=== PATIENT | male | born 1965 | race Caucasian/White ===

== ENCOUNTER 2020-11-29 10:00 | Outpatient (RCR) | payer OTHER, SELFPAY | END 2020-12-12 10:37 | disposition home or self-care (01) | LOC: HO.PTCHIC 10:00 | PROVIDERS: PCP Family Medicine; Visit Provider Family Medicine | DX: M54.41 Lumbago with sciatica, right side (principal) | CPT/HCPCS: 97110; 97162; 97530 ==

== ENCOUNTER 2023-08-20 08:14 | Outpatient (REF) | payer OTHER, SELFPAY | END 2023-08-20 08:15 | disposition home or self-care (01) | LOC: HO.HOSX 08:14 | PROVIDERS: Visit Provider Orthopaedic Surgery | DX: Z13.89 Encounter for screening for other disorder (principal) ==

== ENCOUNTER 2023-09-10 13:03 | Outpatient (AMB) | payer OTHER, SELFPAY ==
--- NOTE | 2023-09-10 13:09 | A.OFFVIS_ITS ---
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 The patient describes his right knee pain as sharp and severe in nature, 08/25. His pain has gotten worse over the last 10 years in spite of continued non operative treatments. He has done physical therapy which aggravated his pain. He has also tried Tylenol and anti-inflammatory medicines which gave him minimal relief. He has had injections in the past which gave him no relief. The patient has difficulty walking even short distances because of his pain. At this point is right knee pain is interfering with his activities of daily living and his ability to sleep well through the night. Allergies No Known Allergies Allergy (Verified 09/10/23 13:27) Medication List - Last Reconciled 09/10/23 by Kerrie Granados RN baclofen 10 mg PO TID oxycodone-acetaminophen 5-325 mg (Percocet) 1 tab PO TID PRN PFSH Medical History (Updated 09/10/23 @ 13:45 by Grayson Parker MD) Pulmonary embolism Physical Exam Const Other: Well-nourished well-developed very friendly male awake alert and oriented x3 in no acute distress Extrem Other: Bilateral lower extremity examination shows good capillary refill, no skin lesions noted, normal sensation light touch Bilateral knee examination shows minimal effusions, palpable crepitus with range of motion, pain with range of motion, range of motion from -5 degrees to 115 degrees, no instability Results Reviewed Results Reviewed: X-rays of the patient's bilateral knee show severe degenerative joint disease with grade 4 [id number] arthritis, subchondral sclerosis, osteophyte formation, no acute bony abnormalities Assessment & Plan Assessment & Plan (1) Arthritis of right knee: Code(s): M17.11 - Unilateral primary osteoarthritis, right knee Plan Mr. Gannon presents with progressively worsening bilateral knee pains, right greater than left, due to severe degenerative joint disease. I had a lengthy discussion with the patient regarding the treatment options. At this point he h as failed continued non operative treatments. The risks and benefits of right total knee replacement surgery were discussed at length with the patient. The patient wishes to proceed with surgery. He will contact my office to pick a surgery date. I will see him back 1 week prior to his surgery to answer any final questions that he might have. Feel free to call me at any time should questions regarding his orthopedic management arise. Thank you very much for the me to see this very friendly gentleman. I spent 22 minutes in reviewing the patient's records and imaging studies, seeing the patient and documenting in the medical record. Orders: Orders XR knee LT 3V Today M25.561 - Pain in right knee XR knee RT 3V Today M25.561 - Pain in right knee Coding Level of Care Code New Pt Level 2 (86238) Diagnoses Arthritis of right knee M17.11
== END 2023-09-10 13:47 | disposition home or self-care (01) ==
PROVIDERS: PCP Family Medicine; Visit Provider Orthopaedic Surgery
DX: M17.11 Unilateral primary osteoarthritis, right knee (principal)
CPT/HCPCS: 99202

== ENCOUNTER 2023-09-10 15:02 | Outpatient (REF) | payer OTHER, SELFPAY ==
--- NOTE | ~2023-09-10 | XR_ITS ---
EXAMINATION: XR KNEE, RIGHT XR KNEE, LEFT CLINICAL INFORMATION: Bilateral knee pain. COMPARISON: None available. TECHNIQUE: AP, lateral and sunrise views of bilateral knees. FINDINGS: RIGHT KNEE: Moderate joint effusion. The bones are diffusely demineralized. Advanced tricompartmental degenerative changes with joint space loss most notable in the lateral compartment, and osteophytes. Faint chondrocalcinosis in the lateral compartment. LEFT KNEE: The bones are diffusely demineralized. Moderate joint effusion. Advanced tricompartmental degenerative changes with tricompartmental joint space loss and marginal osteophytes. Faint chondrocalcinosis in the lateral compartment. XR/XR knee RT 3V IMPRESSION: Advanced degenerative changes in the bilateral knees. Additional imaging with CT scan or MRI should be considered for better visualization as these modalities are much more sensitive for detection of fracture or other underlying pathology.
--- NOTE | ~2023-09-10 | XR_ITS ---
EXAMINATION: XR KNEE, RIGHT XR KNEE, LEFT CLINICAL INFORMATION: Bilateral knee pain. COMPARISON: None available. TECHNIQUE: AP, lateral and sunrise views of bilateral knees. FINDINGS: RIGHT KNEE: Moderate joint effusion. The bones are diffusely demineralized. Advanced tricompartmental degenerative changes with joint space loss most notable in the lateral compartment, and osteophytes. Faint chondrocalcinosis in the lateral compartment. LEFT KNEE: The bones are diffusely demineralized. Moderate joint effusion. Advanced tricompartmental degenerative changes with tricompartmental joint space loss and marginal osteophytes. Faint chondrocalcinosis in the lateral compartment. XR/XR knee LT 3V IMPRESSION: Advanced degenerative changes in the bilateral knees. Additional imaging with CT scan or MRI should be considered for better visualization as these modalities are much more sensitive for detection of fracture or other underlying pathology.
== END 2023-09-10 15:03 | disposition home or self-care (01) ==
LOC: HO.HOSX 15:02
PROVIDERS: Visit Provider Orthopaedic Surgery
DX: M17.11 Unilateral primary osteoarthritis, right knee (principal); M25.562 Pain in left knee; Z79.899 Other long term (current) drug therapy; Z79.891 Long term (current) use of opiate analgesic
CPT/HCPCS: 73562; 99202

== ENCOUNTER → 2023-09-21 11:34 | Outpatient (BNV) | payer OTHER, SELFPAY | PROVIDERS: PCP Student in an Organized Health Care Education/Training Program; Visit Provider Internal Medicine | DX: I26.99 Other pulmonary embolism without acute cor pulmonale (principal) | CPT/HCPCS: 99204 ==

== ENCOUNTER → 2023-10-28 13:25 | Outpatient (REF) | payer OTHER, SELFPAY ==
--- NOTE | 2023-10-28 13:28 | CA_ITS ---
Transthoracic Echocardiogram Patient (Last, First, Middle): Erick Gannon, Gender: Male Date of : 1965 Age: 58 Procedure Date: 10/28/2023 Procedure Type: Transthoracic Echocardiogram Location: OP Height: 175.26 cm Weight: 104.33 kg BSA: 2.19 m2 Heart Rate: bpm BP: 150 / 72 mmHg Completions Manager: TO Referring MD: Estela Barber MD Employee Relation Manager: Karthik Hinkle MD Symptoms: [id number] Study Quality: Fair ECG Rhythm: Sinus Conclusions: - 1. Normal LV ejection fraction 60 65% with grade 1 diastolic dysfunction with possible regional wall motion abnormality, consider ischemic evaluation 2. Normal cardiac valvular Dopplers with mild fibrocalcific aortic valve changes noted 3. Normal RV systolic pressure 4. Upper limits of normal ascending aortic size at 3.6 cm 5. No gross pericardial effusion Findings Procedure Information The patient declines contrast. Left Ventricle Normal left ventricular size, thickness, and systolic function. The visually estimated ejection fraction is between 60-65%. Spectral Doppler is indicative of an impaired relaxation filling pattern. E/E prime ratio is <8, consistent with normal filling pressures. Evidence suggests grade I (mild) diastolic dysfunction. Wall Motion Rest Echo Findings The basal inferior and basal inferolateral segments are hypokinetic. All other scored wall segments showed normal motion. Right Ventricle Normal right ventricular cavity size and systolic function. Atria The left atrium is likely dilated. Interatrial shunt cannot be excluded. The right atrium is normal in size. Aortic Valve There is mild calcification of the aortic valve. There is no aortic valve stenosis. There is no aortic valve regurgitation. Mitral Valve Normal mitral valve structure and function. There is trace mitral valve regurgitation. There is no mitral valve stenosis. Pulmonic Valve The pulmonic valve was not well visualized. Tricuspid Valve Normal tricuspid valve structure. There is trace tricuspid valve regurgitation. The right ventricular systolic pressure is normal. The right ventricular systolic pressure is 25 mmHg. Normal right atrial pressure. There is no evidence of pulmonary hypertension. Great Vessels The pulmonary artery was not well visualized. Venous The inferior vena cava is normal in size and collapses greater than 50% with inspiration. Pericardium/Pleural There is no evidence of pericardial effusion. Prior Study Comparison No prior study available for comparison. Measurements 2D Linear Measurements IVSd: 1.12 0.6-0.9/0.6-1.0 cm LVIDd: 4.99 3.9-5.3/4.2-5.9 cm LVIDd Index: 2.28 2.4-3.2/2.2-3.1 cm/m2 LVIDs: 2.87 2.0-3.6 cm LVPWd: 0.85 0.7-1.1 cm LA Diam: 3.90 2.7-3.8/3.0-4.0 cm LAIDs Index: 1.78 1.5-2.3 cm/m2 LV Mass: 236.13 67-162/88-224 g LV Mass Index: 107.82 43-95/49-115 g/m2 LVOT Diam: 2.30 3.0+(-)1.3 cm Mitral Valve MV Pk E: 0.79 MV PK A: 0.84 MV Decel Time: 244.00 E/A: 0.90 E'Lateral: 12.00 E'Medial: 6.53 E/E' Med: 12.10 E/E' Lat: 6.60 PHT: 72.00 MVA PHT: 3.06 Decel Hendricks: 3.24 Aortic Valve AoV Pk Sumanth: 1.77 AoV Mn Sumanth: 1.17 AoV VTI: 0.36 AoV Pk Grad: 13.00 Aov Mn Grad: 6.00 THERESA Cont.VTI: 2.62 LVOT LVOT Pk Sumanth: 0.99 LVOT Mn Sumanth: 0.62 LVOT VTI: 0.23 LVOT Pk Grad: 4.00 LVOT Mn Grad: 2.00 LVOT Diam: 2.30 LVOT Area: 4.15 Diastolic Function MV Pk E: 0.79 MV Pk A: 0.84 E/A: 0.90 E'Medial: 6.53 E/E' Med: 12.10 E' Laterial: 12.00 E/E' Lat: 6.60 Right Ventricle TAPSE (mm): 27.50 TVS' Sumanth: 15.70 Tricuspid Valve TR Pk Sumanth: 2.34 TR Pk Grad: 22.00 RA Press: 3.00 RVSP: 25.00 Great Vessels Aorta Sinus of Valsalva: 3.67 2.0-3.[address] Ridge: 2.75 1.7-3.4 cm Ao Asc: 3.60 2.1-3.4 cm Updated in Other Vendor System with Status of Final Karthik Hinkle MD electronically signed on 10/28/2023 3:38:46 PM with status of Final
== END ==
LOC: HO.CARD 13:25
PROVIDERS: PCP Student in an Organized Health Care Education/Training Program; Visit Provider Student in an Organized Health Care Education/Training Program
DX: R06.00 Dyspnea, unspecified (principal)
CPT/HCPCS: 93306

== ENCOUNTER → 2023-10-28 13:28 | Outpatient (BNV) | payer OTHER, SELFPAY | PROVIDERS: PCP Student in an Organized Health Care Education/Training Program; Visit Provider Internal Medicine Cardiovascular Disease | DX: I35.8 Other nonrheumatic aortic valve disorders (principal); I51.9 Heart disease, unspecified | CPT/HCPCS: 93306 ==

== ENCOUNTER 2024-05-11 19:02 | Emergency (ER) | payer OTHER, SELFPAY ==
[2024-05-11 19:29] VITALS: BP 108/65; PULSE 100; RESP 19; TEMP 36.4; O2SAT 100; BMI 29.5
--- NOTE | 2024-05-11 19:33 | ED_ITS ---
HPI - General Adult General Chief complaint: Extremity Problem Stated complaint: cant move legs Time Seen by Provider: 05/11/24 21:33 Source: patient Mode of arrival: ambulatory Limitations: no limitations History of Present Illness ED Provider: ashley WILHELM narrative: Patient's history of osteoarthritis of the knee for several months has seen orthopedics and received cortisone shots in the past also does have history of gout comes here for increased pain in the left knee for last few days unable to ambulate. No recent trauma Related Data Home Medications ?Medication ?Instructions ?Recorded ?Confirmed albuterol sulfate 90 mcg/actuation 2 puff inhalation DAILY PRN 09/10/23 05/13/24 aerosol inhaler (ProAir HFA) Wheezing allopurinol 100 mg tablet 100 mg PO DAILY 09/10/23 05/13/24 apixaban 5 mg tablet (Eliquis) 5 mg PO BID 09/10/23 05/13/24 atorvastatin 40 mg tablet 40 mg PO DAILY 09/10/23 05/13/24 baclofen 10 mg tablet 10 mg PO TID 09/10/23 05/13/24 oxycodone-acetaminophen 5 mg-325 1 tab PO TID PRN Pain (Scale Score 09/10/23 05/13/24 mg tablet (Percocet) 4-6) umeclidinium 62.5 mcg/actuation 1 inh inhalation DAILY 09/10/23 05/13/24 blister powder for inhalation (Incruse Ellipta) Previous Rx's ?Medication ?Instructions ?Recorded prednisone 20 mg tablet 40 mg (2 x 20 mg) PO DAILY #10 tabs 05/11/24 oxycodone-acetaminophen 5 mg-325 1 tab PO TID PRN moderate pain 05/13/24 mg tablet (scale score 5-6) #9 tabs Allergies Allergy/AdvReac Type Severity Reaction Status Date / Time No Known Allergies Allergy Verified 05/11/24 19:32 Review of Systems 2 Review of Systems: Yes all other systems are reviewed and are negative PMFSH Past Medical History Medical History Osteoarthritis Pulmonary embolism STALLINGS (dyspnea on exertion) HLD (hyperlipidemia) Pterygium of eye Depression Gout Obesity Knee pain Surgical History H/O: knee surgery Social History Social History Household Members: Other Housing: Apartment Unable to assess alcohol history related to: Unknown Patient Tobacco Use Status: Current everyday Tobacco user Tobacco use type: Cigarette service: No Current occupational status: disabled Physical Exam ED Vital Signs: Vital Signs - 24 hr 05/11/24 19:29 05/11/24 21:13 05/11/24 22:12 Temperature 97.5 F 97.3 F 98.0 F Pulse Rate 100 115 H 97 Respiratory Rate 19 20 18 Blood Pressure 108/65 126/76 115/69 Pulse Oximetry 100 96 97 Oxygen Delivery Method Room Air Room Air Room Air 05/11/24 23:16 Temperature 98.0 F Pulse Rate 97 Respiratory Rate 18 Blood Pressure 115/69 Pulse Oximetry 97 Oxygen Delivery Method Room Air BMI result Body Mass Index 29.5 Appearance: Alert. Oriented X3. No acute distress. ENT: Pharynx normal. Oral Mucosa moist Neck: Normal inspection. Neck supple. CVS: Normal heart rate and rhythm. Pulses normal. Respiratory: No respiratory distress. Equal air entry bilateral, Abdomen: Soft and nontender. Bowel sounds are present, Skin: Skin warm and dry. Normal skin color. Normal skin turgor. Extremities: Left knee with effusion and diffuse tenderness Neuro: Oriented X 3. No motor deficit. No sensory deficit.No cerebellar signs , cranial nerves II-XII intact Course Course Course Narrative: This is a Rapid Medical Examination (RME) performed by Luci Walton PA-C in triage. Full HPI, ROS, assessment and treatment plan per primary provider in the Main ED. 58 yo male hx of here for eval of bilateral LE pain and weakness x1.5 months. denies injury/ trauma. He has not been medically evaluated for this over the last month and a half. called PCP however has been unable to get an appointment until June 09, 2024. Denies nausea, vomiting, abdominal pain, difficulty breathing, saddle anesthesia, bowel or bladder incontinence or retention, tingling down the lower extremities. Patient not forthcoming with information. patient presents in wheelchair. Unable to assess ambulation. decreased strength to LEs. sensation intact to light touch. unable to assess patellar DTRs d/t patient positioning in triage. Plan: labs, ua, xr ordered Reevaluation(s) Reevaluation #1: this is a duplicate note. Please see Dr. Robertson's complete note for patient's visit on 05/11/24. Medications Administered Discontinued Medications Generic Name Dose Route Start Last Admin Trade Name Saurav PRN Reason Stop Dose Admin Dexamethasone 10 mg 05/11/24 23:10 05/11/24 23:14 Dexamethasone 2 Mg Tablet PO 05/11/24 23:11 10 mg ONCE ONE Administration Lidocaine HCl 5 ml 05/11/24 21:59 05/11/24 23:15 Lidocaine Hcl 2 % Mpf 5 Ml Vial INFILTRATI 05/11/24 22:00 Not Given ONCE ONE Methylprednisolone Acetate 80 mg 05/11/24 21:59 05/11/24 23:15 Methylprednisolone Acetate 80 Mg Vial INTRAARTIC 05/11/24 22:00 Not Given ONCE ONE Oxycodone HCl 10 mg 05/11/24 21:54 05/11/24 22:02 Oxycodone Hcl Immed Release 5 Mg Tablet PO 05/11/24 21:55 10 mg ONCE ONE Administration Medical Decision Making Medical Decision Making [facility] Narrative: Patient has significant osteoarthritis/gout of knee patient refused knee aspiration or cortisone injection initially agreed but when I approach drain refused to any injection will discharge patient home advised to follow with Orthopedics Lab Data MDM Lab Attestation statement: I reviewed the patient's lab results. 05/11/24 19:58 05/11/24 19:58 Labs: Lab Results 05/11/24 Range/Units 19:58 WBC 11.3 H (4.8-10.8) X10*3/uL RBC 4.32 L (4.60-5.80) X10*6/uL Hgb 11.2 L D (14.0-18.0) g/dl Hct 34.8 L D (42.0-52.0) % MCV 80.6 (80.0-98.0) fL MCH 25.9 L (27.0-33.0) pg MCHC 32.2 (31.0-36.0) g/dl RDW 14.6 (11.0-16.0) % Plt Count 452 H D (160-400) X10*3/uL MPV 9.6 (9.4-12.4) fL Immature Gran % (Auto) 0.4 (0.0-0.4) % Neut % (Auto) 65.4 (45-73) % Lymph % (Auto) 20.2 (20-40) % [place] % (Auto) 7.5 (2-11) % Eos % (Auto) 6.1 H (0-4) % Baso % (Auto) 0.4 (0-2) % Lymph # (Auto) 2.3 (1.2-4.9) X10*3/uL [place] # (Auto) 0.9 (0.1-1.2) X10*3/uL Eos # (Auto) 0.7 H (0.0-0.4) X10*3/uL Baso # (Auto) 0.0 (0.0-0.2) X10*3/uL Abs Immat Gran (auto) 0.05 H (0.00-0.03) X10*3/uL Absolute Neuts (auto) 7.4 (2.0-8.3) x10*3/uL Absolute Nucleated RBC 0.000 (0.0-0.012) X10*3/uL Nucleated RBC % (auto) 0.0 (0.0-0.2) /100WBC Sodium 140 (135-145) mmol/L Potassium 4.9 (3.3-5.1) mmol/L Chloride 102 (96-108) mmol/L Carbon Dioxide 25 (22-29) mmol/L Anion Gap 18 (12-20) BUN 9 (9-16) mg/dL Creatinine 0.93 (0.5-1.4) mg/dL Estim Creat Clear Calc 98.7 Estimated GFR > 60 Random Glucose 96 (60-115) mg/dL Calcium 9.6 (8.4-10.2) mg/dL Magnesium 2.1 (1.6-2.6) mg/dL Total Bilirubin 0.4 (0.0-1.0) mg/dL AST 14 (5-37) U/L ALT 13 (0-40) U/L Alkaline Phosphatase 127 H (39-117) U/L Total Protein 7.5 (6.5-8.0) g/dL Albumin 3.7 (3.5-5.0) g/dL Lipase 13 (8-78) U/L Vitamin B12 421 (200-900) pg/mL Discharge Plan Discharge Clinical Impression: Arthritis of left knee Patient Disposition: Home, Self-Care Instructions: Osteoarthritis (ED) Additional Instructions: Follow with Orthopedics Titi wrap for support Take prednisone as prescribed Prescriptions: New prednisone 20 mg tablet 40 mg PO DAILY Qty: 10 0RF No Action oxycodone-acetaminophen 5-325 mg tablet 1 tab PO TID PRN (Reason: moderate pain (scale score 5-6)) Qty: 9 0RF Rx Instructions: Partial Fill upon patient request. oxycodone-acetaminophen [Percocet] 5-325 mg tablet 1 tab PO TID PRN (Reason: Pain (Scale Score 4-6)) baclofen 10 mg tablet 10 mg PO TID Eliquis 5 mg tablet 5 mg PO BID Incruse Ellipta 62.5 mcg/actuation blister with device 1 inh inhalation DAILY albuterol sulfate [ProAir HFA] 90 mcg/actuation HFA aerosol inhaler 2 puff inhalation DAILY PRN (Reason: Wheezing) allopurinol 100 mg tablet 100 mg PO DAILY atorvastatin 40 mg tablet 40 mg PO DAILY Referrals: Giacomo Rios MD [Physician] - 2 weeks Interventions: ED Discharge Assessment Last Done: 05/11/24 23:16 Discharge Date/Time: 05/11/24 23:46 Print Language: Japanese
[2024-05-11 20:03] LABS: MANUAL DIFF FLAG NO
[2024-05-11 20:08] LABS: Basophils Percent Auto 0.4 % (0-2); Eosinophils Absolute Auto 0.7 X10*3/uL (0.0-0.4); Eosinophils Percent Auto 6.1 % (0-4); Hematocrit 34.8 % (42.0-52.0); Hemoglobin 11.2 g/dl (14.0-18.0); Imm Gran Abs Auto 0.05 X10*3/uL (0.00-0.03); Imm Gran Pct Auto 0.4 % (0.0-0.4); Lymphocytes Absolute Auto 2.3 X10*3/uL (1.2-4.9); Lymphocytes Percent Auto 20.2 % (20-40); Mean Corpuscular HGB Conc 32.2 g/dl (31.0-36.0); Mean Corpuscular Hemoglobin 25.9 pg (27.0-33.0); Mean Corpuscular Volume 80.6 fL (80.0-98.0); Mean Platelet Volume 9.6 fL (9.4-12.4); Monocytes Absolute Auto 0.9 X10*3/uL (0.1-1.2); Monocytes Percent Auto 7.5 % (2-11); Neutrophils Absolute Auto 7.4 x10*3/uL (2.0-8.3); Neutrophils Percent Auto 65.4 % (45-73); Platelet Count 452 X10*3/uL (160-400); Red Blood Count 4.32 X10*6/uL (4.60-5.80); Red Cell Distribution Width 14.6 % (11.0-16.0); White Blood Count 11.3 X10*3/uL (4.8-10.8)
[2024-05-11 20:28] LABS: Alanine Aminotransferase 13 U/L (0-40); Albumin Level 3.7 g/dL (3.5-5.0); Alkaline Phosphatase 127 U/L (39-117); Anion Gap 18 (12-20); Aspartate Amino Transferase 14 U/L (5-37); Bilirubin Total 0.4 mg/dL (0.0-1.0); Blood Urea Nitrogen 9 mg/dL (9-16); Calcium 9.6 mg/dL (8.4-10.2); Carbon Dioxide 25 mmol/L (22-29); Chloride 102 mmol/L (96-108); Creatinine Clr Calc Pharmacy 98.7; Estimated Glomerular Filt Rate > 60; Glucose Random 96 mg/dL (60-115); Lipase 13 U/L (8-78); Magnesium 2.1 mg/dL (1.6-2.6); Potassium 4.9 mmol/L (3.3-5.1); Sodium 140 mmol/L (135-145); Total Protein 7.5 g/dL (6.5-8.0)
[2024-05-11 20:56] LABS: Vitamin B12 421 pg/mL (200-900)
[2024-05-11 21:13] VITALS: BP 126/76; PULSE 115; RESP 20; TEMP 36.3; O2SAT 96
--- NOTE | 2024-05-11 21:15 | MHC.EDTECH ---
pt changed over, vitals taken and pt positioned to back with pillows and warm blanket given for comfort
[2024-05-11] MEDS: oxyCODONE HCl Immed Release 5 MG TABLET 10 MG PO (22:02)
[2024-05-11 22:12] VITALS: BP 115/69; PULSE 97; RESP 18; TEMP 36.7; O2SAT 97
--- NOTE | 2024-05-11 23:09 | PC.NURSE ---
Pt refusing all care after receiving oxycodone pain med administration. pt does not want fluid in knee to be drained, does not want cortisone shot in knee, says eh wants to leave and will call son for ride. pt A&Ox4, able to make own decisions, MD Robertson at bedside and aware - discharging patient with svetlana bandage wrap.
[2024-05-11] MEDS: dexAMETHasone 2 MG TABLET 10 MG PO (23:14)
--- NOTE | 2024-05-11 23:14 | ED.EXTPRO ---
HPI - Extremity Problem General Chief complaint: Extremity Problem Stated complaint: cant move legs Time Seen by Provider: 05/11/24 21:33 Source: patient Mode of arrival: ambulatory Limitations: no limitations History of Present Illness ED Provider: ashley WILHELM Narrative: Patient's history of gout and osteoarthritis of both knees comes here for increased pain in the left knee for some time was seen by orthopedics in the past but had a poor follow-up on Eliquis for PE bilaterally, no recent trauma or fall comes with swelling of the left knee increases ambulation no fever no chills Related Data Home Medications ?Medication ?Instructions ?Recorded ?Confirmed albuterol sulfate 90 mcg/actuation 2 puff inhalation DAILY PRN 09/10/23 09/21/23 aerosol inhaler (ProAir HFA) Wheezing allopurinol 100 mg tablet 100 mg PO DAILY 09/10/23 09/21/23 apixaban 5 mg tablet (Eliquis) 5 mg PO BID 09/10/23 09/21/23 atorvastatin 40 mg tablet 40 mg PO DAILY 09/10/23 09/21/23 baclofen 10 mg tablet 10 mg PO TID 09/10/23 09/21/23 oxycodone-acetaminophen 5 mg-325 1 tab PO TID PRN Pain (Scale Score 09/10/23 09/21/23 mg tablet (Percocet) 4-6) umeclidinium 62.5 mcg/actuation 1 inh inhalation DAILY 09/10/23 09/21/23 blister powder for inhalation (Incruse Ellipta) Previous Rx's ?Medication ?Instructions ?Recorded prednisone 20 mg tablet 40 mg (2 x 20 mg) PO DAILY #10 tabs 05/11/24 Allergies Allergy/AdvReac Type Severity Reaction Status Date / Time No Known Allergies Allergy Verified 05/11/24 19:32 Review of Systems Review of Systems: Yes all other systems are reviewed and are negative PMFSH Past Medical History Medical History (Updated 05/11/24 @ 23:11 by Nicholas Robertson MD) Osteoarthritis Pulmonary embolism STALLINGS (dyspnea on exertion) HLD (hyperlipidemia) Pterygium of eye Depression Gout Obesity Knee pain Surgical History (Updated 09/21/23 @ 11:53 by Moriah Cardenas MD) H/O: knee surgery Social History Social History (Updated 09/21/23 @ 11:46 by Renetta Lucero) Household Members: Other Housing: Apartment Unable to assess alcohol history related to: Unknown Patient Tobacco Use Status: Current everyday Tobacco user Tobacco use type: Cigarette Use of substances other than those prescribed or required for medical reasons: Unknown Advance Directives: No Advance Directives Information Provided: No Do you have a plan to hurt others: No Plan service: No Current occupational status: disabled Physical Exam Vital Signs: Vital Signs: Last Vital Signs Temp 98.0 F 05/11/24 22:12 Pulse 97 05/11/24 22:12 Resp 18 05/11/24 22:12 BP 115/69 05/11/24 22:12 Pulse Ox 97 05/11/24 22:12 O2 Del Method Room Air 05/11/24 22:12 BMI result Body Mass Index 29.5 Extrem: Knee images: 1. Moderate knee effusion diffuse tenderness Medications Administered Discontinued Medications Generic Name Dose Route Start Last Admin Trade Name Freq PRN Reason Stop Dose Admin Oxycodone HCl 10 mg 05/11/24 21:54 05/11/24 22:02 Oxycodone Hcl Immed Release 5 Mg Tablet PO 05/11/24 21:55 10 mg ONCE ONE Administration Medical Decision Making Medical Decision Making [facility] Narrative: Patient's history of gout comes here for increased pain in left knee does have history of arthritis also in the past initially patient agreed for steroid injection at the time of giving the injection patient refused does not want any shots will be applied will give prednisone and discharge patient home advised to follow up as outpatient Lab Data [facility] Lab Attestation statement: I reviewed the patient's lab results. 05/11/24 19:58 05/11/24 19:58 Labs: Lab Results 05/11/24 Range/Units 19:58 WBC 11.3 H (4.8-10.8) X10*3/uL RBC 4.32 L (4.60-5.80) X10*6/uL Hgb 11.2 L D (14.0-18.0) g/dl Hct 34.8 L D (42.0-52.0) % MCV 80.6 (80.0-98.0) fL MCH 25.9 L (27.0-33.0) pg MCHC 32.2 (31.0-36.0) g/dl RDW 14.6 (11.0-16.0) % Plt Count 452 H D (160-400) X10*3/uL MPV 9.6 (9.4-12.4) fL Immature Gran % (Auto) 0.4 (0.0-0.4) % Neut % (Auto) 65.4 (45-73) % Lymph % (Auto) 20.2 (20-40) % [place] % (Auto) 7.5 (2-11) % Eos % (Auto) 6.1 H (0-4) % Baso % (Auto) 0.4 (0-2) % Lymph # (Auto) 2.3 (1.2-4.9) X10*3/uL [place] # (Auto) 0.9 (0.1-1.2) X10*3/uL Eos # (Auto) 0.7 H (0.0-0.4) X10*3/uL Baso # (Auto) 0.0 (0.0-0.2) X10*3/uL Abs Immat Gran (auto) 0.05 H (0.00-0.03) X10*3/uL Absolute Neuts (auto) 7.4 (2.0-8.3) x10*3/uL Absolute Nucleated RBC 0.000 (0.0-0.012) X10*3/uL Nucleated RBC % (auto) 0.0 (0.0-0.2) /100WBC Sodium 140 (135-145) mmol/L Potassium 4.9 (3.3-5.1) mmol/L Chloride 102 (96-108) mmol/L Carbon Dioxide 25 (22-29) mmol/L Anion Gap 18 (12-20) BUN 9 (9-16) mg/dL Creatinine 0.93 (0.5-1.4) mg/dL Estim Creat Clear Calc 98.7 Estimated GFR > 60 Random Glucose 96 (60-115) mg/dL Calcium 9.6 (8.4-10.2) mg/dL Magnesium 2.1 (1.6-2.6) mg/dL Total Bilirubin 0.4 (0.0-1.0) mg/dL AST 14 (5-37) U/L ALT 13 (0-40) U/L Alkaline Phosphatase 127 H (39-117) U/L Total Protein 7.5 (6.5-8.0) g/dL Albumin 3.7 (3.5-5.0) g/dL Lipase 13 (8-78) U/L Vitamin B12 421 (200-900) pg/mL Discharge Plan Discharge Clinical Impression: Arthritis of left knee Patient Disposition: Home, Self-Care Instructions: Osteoarthritis (ED) Additional Instructions: Follow with Orthopedics Titi wrap for support Take prednisone as prescribed Prescriptions: New prednisone 20 mg tablet 40 mg PO DAILY Qty: 10 0RF No Action oxycodone-acetaminophen [Percocet] 5-325 mg tablet 1 tab PO TID PRN (Reason: Pain (Scale Score 4-6)) baclofen 10 mg tablet 10 mg PO TID Eliquis 5 mg tablet 5 mg PO BID Incruse Ellipta 62.5 mcg/actuation blister with device 1 inh inhalation DAILY albuterol sulfate [ProAir HFA] 90 mcg/actuation HFA aerosol inhaler 2 puff inhalation DAILY PRN (Reason: Wheezing) allopurinol 100 mg tablet 100 mg PO DAILY atorvastatin 40 mg tablet 40 mg PO DAILY Referrals: Giacomo Rios MD [Physician] - 2 weeks Print Language: [place]
[2024-05-11 23:16] VITALS: BP 115/69; PULSE 97; RESP 18; TEMP 36.7; O2SAT 97
== END 2024-05-11 23:46 | disposition home or self-care (01) ==
PROVIDERS: Physician Assistant Medical; Emergency Provider Internal Medicine; PCP Student in an Organized Health Care Education/Training Program
DX: M17.12 Unilateral primary osteoarthritis, left knee (principal); M25.562 Pain in left knee; M25.561 Pain in right knee; E78.5 Hyperlipidemia, unspecified; M10.9 Gout, unspecified
CPT/HCPCS: 36415; 80053; 82607; 83690; 83735; 85025; 99283; 99284; J8540

== ENCOUNTER 2024-05-12 02:20 | Emergency (ER) | payer OTHER, SELFPAY ==
--- NOTE | 2024-05-12 08:03 | ED_ITS ---
HPI - Extremity Problem General Chief complaint: Extremity Injury, Lower Stated complaint: L KNEE PAIN Time Seen by Provider: 05/12/24 07:38 Source: patient and old records reviewed Mode of arrival: ambulatory Limitations: no limitations History of Present Illness ED Provider: CHAPARRO WILHELM Narrative: 58 yo male with PMH of arthritis, obesity, HLD, PE on eliquis, obesity, gout here with c/o 3 weeks of leg pain and cannot care for himself he was just seen here and started on prednisone yesterday he also takes percocet BID. He notes he cannot get up and care for himself and family somehow got him into a car. He is very upset he is here but agrees to see PT/CM MD Complaint: joint swelling and joint pain Onset (ago): week(s) (3) Pain Consistency: constant Location: left and knee Quality: crushing Radiation: none Relieving factors: nothing Exacerbating factors: range of motion, weight bearing, walking and palpation Associated symptoms: denies other symptoms Context: history of gout Related Data Home Medications ?Medication ?Instructions ?Recorded ?Confirmed albuterol sulfate 90 mcg/actuation 2 puff inhalation DAILY PRN 09/10/23 09/21/23 aerosol inhaler (ProAir HFA) Wheezing allopurinol 100 mg tablet 100 mg PO DAILY 09/10/23 09/21/23 apixaban 5 mg tablet (Eliquis) 5 mg PO BID 09/10/23 09/21/23 atorvastatin 40 mg tablet 40 mg PO DAILY 09/10/23 09/21/23 baclofen 10 mg tablet 10 mg PO TID 09/10/23 09/21/23 oxycodone-acetaminophen 5 mg-325 1 tab PO TID PRN Pain (Scale Score 09/10/23 09/21/23 mg tablet (Percocet) 4-6) umeclidinium 62.5 mcg/actuation 1 inh inhalation DAILY 09/10/23 09/21/23 blister powder for inhalation (Incruse Ellipta) Previous Rx's ?Medication ?Instructions ?Recorded prednisone 20 mg tablet 40 mg (2 x 20 mg) PO DAILY #10 tabs 05/11/24 Allergies Allergy/AdvReac Type Severity Reaction Status Date / Time No Known Allergies Allergy Verified 05/11/24 19:32 Review of Systems 2 Review of Systems: Constitutional : No Fever, No Chills ENT/Mouth : No Ear Pain, No Hoarseness, No sore throat Eyes: No Eye Pain, No Swelling, No Redness, No Foreign Body Cardiovascular : No Chest Pain, No SOB Respiratory : No Cough, No Dyspnea Gastrointestinal : No Nausea, No Vomiting, No Diarrhea, No abdominal Pain Genitourinary : No Dysuria, No Hematuria Musculoskeletal : positive joint pain, No Myalgias, pos Joint Swelling Skin : No Skin lacerations, No rash Neuro : No Weakness, No Numbness, No Loss of Consciousness, No Dizziness, No Headache Psych : No Anxiety/Panic, No Depression Heme/Lymph: no easy bruising, no Lymphadenopathy Endocrine : No Polyuria, No Polydipsia All other systems reviewed and are negative PMFSH Past Medical History Attestation statement: The following information was validated with the patient. Source: old records reviewed Medical History Osteoarthritis Pulmonary embolism STALLINGS (dyspnea on exertion) HLD (hyperlipidemia) Pterygium of eye Depression Gout Obesity Knee pain Surgical History H/O: knee surgery Social History Social History Household Members: Other Housing: Apartment Unable to assess alcohol history related to: Unknown Patient Tobacco Use Status: Current everyday Tobacco user Tobacco use type: Cigarette Advance Directives: No Advance Directives Information Provided: No service: No Current occupational status: disabled Physical Exam 2 Vital Signs: Vital Signs: Last Vital Signs Temp 98.4 F 05/12/24 08:15 Pulse 97 05/12/24 08:15 Resp 18 05/12/24 08:15 BP 112/57 L 05/12/24 08:15 Pulse Ox 100 05/12/24 08:15 O2 Del Method Room Air 05/12/24 08:15 Appearance: Alert. Oriented X3. No acute distress. Frail unwell appearing unsteady on his feet Eyes: Pupils equal, round and reactive to light. ENT: Pharynx normal. Neck: Normal inspection. Neck supple. CVS: Normal heart rate and rhythm. Pulses normal. Respiratory: No respiratory distress. Breath sounds normal. Abdomen: Soft and nontender. Skin: Skin warm and dry. pale skin color. Normal skin turgor. Extremities: No lower extremity edema. L small joint effusion no redness, warmth will not allow ROM exam testing Neuro: Oriented X 3. No motor deficit. No sensory deficit. Medications Administered Discontinued Medications Generic Name Dose Route Start Last Admin Trade Name Saurav PRN Reason Stop Dose Admin Morphine Sulfate 15 mg 05/12/24 08:02 05/12/24 08:32 Morphine Sulfate Immed Release 15 Mg Tablet PO 05/12/24 08:03 15 mg ONCE ONE Administration Medical Decision Making Medical Decision Making MDM Narrative: 58 yo male with PMH of arthritis, obesity, HLD, PE on eliquis, obesity, gout here with c/o inability to care for himself, knee pain x 3 weeks just started on steroids yesterday he has small joint effusion but it is not something I would drain at this time and he has no signs of septic joint. If work up negative will refer to PT/CM he is unable to care for himself. Differential Diagnosis Differential Diagnoses: The differential diagnosis associated with the presentation includes FTT, weakness, arthritis, gout Admission/Observation Consideration of admission/observation: Escalation of care including admission/observation considered physician observation started at 915am pending PT/CM Consult Healthcare Provider Management of the patient was discussed with: Shopper Marketing Manager Lab Data [facility] Lab Attestation statement: I reviewed the patient's lab results. 05/12/24 08:43 05/12/24 08:43 Labs: Lab Results 05/12/24 Range/Units 08:43 WBC 7.6 (4.8-10.8) X10*3/uL RBC 4.35 L (4.60-5.80) X10*6/uL Hgb 11.3 L (14.0-18.0) g/dl Hct 34.9 L (42.0-52.0) % MCV 80.2 (80.0-98.0) fL MCH 26.0 L (27.0-33.0) pg MCHC 32.4 (31.0-36.0) g/dl RDW 14.7 (11.0-16.0) % Plt Count 426 H (160-400) X10*3/uL MPV 9.3 L (9.4-12.4) fL Immature Gran % (Auto) 0.7 H (0.0-0.4) % Neut % (Auto) 90.2 H (45-73) % Lymph % (Auto) 7.3 L (20-40) % Davie % (Auto) 1.7 L (2-11) % Eos % (Auto) 0.0 (0-4) % Baso % (Auto) 0.1 (0-2) % Lymph # (Auto) 0.6 L (1.2-4.9) X10*3/uL Davie # (Auto) 0.1 (0.1-1.2) X10*3/uL Eos # (Auto) 0.0 (0.0-0.4) X10*3/uL Baso # (Auto) 0.0 (0.0-0.2) X10*3/uL Abs Immat Gran (auto) 0.05 H (0.00-0.03) X10*3/uL Absolute Neuts (auto) 6.8 (2.0-8.3) x10*3/uL Absolute Nucleated RBC 0.000 (0.0-0.012) X10*3/uL Nucleated RBC % (auto) 0.0 (0.0-0.2) /100WBC Smear Tech's Comments VERIFIED Sodium 141 (135-145) mmol/L Potassium 5.0 (3.3-5.1) mmol/L Chloride 103 (96-108) mmol/L Carbon Dioxide 26 (22-29) mmol/L Anion Gap 17 (12-20) BUN 9 (9-16) mg/dL Creatinine 0.94 (0.5-1.4) mg/dL Estim Creat Clear Calc TNP Estimated GFR > 60 Random Glucose 137 H (60-115) mg/dL Calcium 10.1 (8.4-10.2) mg/dL Magnesium 2.1 (1.6-2.6) mg/dL Total Bilirubin 0.5 (0.0-1.0) mg/dL Direct Bilirubin 0.2 (0.0-0.5) mg/dL AST 12 (5-37) U/L ALT 13 (0-40) U/L Alkaline Phosphatase 129 H (39-117) U/L Total Protein 7.5 (6.5-8.0) g/dL Albumin 3.8 (3.5-5.0) g/dL Independent Interpretation I performed an independent interpretation of an: Plain X-Ray (from yesterday ) Radiology Impression Discussion of test interpretation with radiology: I have reviewed the radiologist's reading. External Record Review External record reviewed: Inpatient record Discharge Plan Discharge Clinical Impression: Left knee pain Qualifiers: Chronicity: acute Qualified Code(s): M25.562 - Pain in left knee Patient Disposition: Still a Patient Prescriptions: No Action prednisone 20 mg tablet 40 mg PO DAILY Qty: 10 0RF oxycodone-acetaminophen [Percocet] 5-325 mg tablet 1 tab PO TID PRN (Reason: Pain (Scale Score 4-6)) baclofen 10 mg tablet 10 mg PO TID Eliquis 5 mg tablet 5 mg PO BID Incruse Ellipta 62.5 mcg/actuation blister with device 1 inh inhalation DAILY albuterol sulfate [ProAir HFA] 90 mcg/actuation HFA aerosol inhaler 2 puff inhalation DAILY PRN (Reason: Wheezing) allopurinol 100 mg tablet 100 mg PO DAILY atorvastatin 40 mg tablet 40 mg PO DAILY Print Language: Turkmen
[2024-05-12 08:15] VITALS: BP 112/57; PULSE 97; RESP 18; TEMP 36.9; O2SAT 100
[2024-05-12] MEDS: Morphine Sulfate Immed Release 15 MG TABLET PO ×2 (08:32→18:21)
[2024-05-12 08:55] LABS: Basophils Percent Auto 0.1 % (0-2); Hematocrit 34.9 % (42.0-52.0); Hemoglobin 11.3 g/dl (14.0-18.0); Imm Gran Abs Auto 0.05 X10*3/uL (0.00-0.03); Imm Gran Pct Auto 0.7 % (0.0-0.4); Lymphocytes Absolute Auto 0.6 X10*3/uL (1.2-4.9); Lymphocytes Percent Auto 7.3 % (20-40); MANUAL DIFF FLAG SCAN; Mean Corpuscular HGB Conc 32.4 g/dl (31.0-36.0); Mean Corpuscular Volume 80.2 fL (80.0-98.0); Mean Platelet Volume 9.3 fL (9.4-12.4); Monocytes Absolute Auto 0.1 X10*3/uL (0.1-1.2); Monocytes Percent Auto 1.7 % (2-11); Neutrophils Absolute Auto 6.8 x10*3/uL (2.0-8.3); Neutrophils Percent Auto 90.2 % (45-73); Platelet Count 426 X10*3/uL (160-400); Red Blood Count 4.35 X10*6/uL (4.60-5.80); Red Cell Distribution Width 14.7 % (11.0-16.0); SCAN SMEAR FLAG 1; White Blood Count 7.6 X10*3/uL (4.8-10.8)
--- NOTE | 2024-05-12 08:58 | PC.NURSE ---
patient unsteady on his feet, two person assist from commode onto bed. patient stating the pain in his left knee has been increasing. encouraged to call for assistance to use the bathroom. medicated per the MAR for pain, labs obtained and sent.
[2024-05-12 09:10] LABS: Alanine Aminotransferase 13 U/L (0-40); Albumin Level 3.8 g/dL (3.5-5.0); Alkaline Phosphatase 129 U/L (39-117); Anion Gap 17 (12-20); Aspartate Amino Transferase 12 U/L (5-37); Bilirubin Direct 0.2 mg/dL (0.0-0.5); Bilirubin Total 0.5 mg/dL (0.0-1.0); Blood Urea Nitrogen 9 mg/dL (9-16); Calcium 10.1 mg/dL (8.4-10.2); Carbon Dioxide 26 mmol/L (22-29); Chloride 103 mmol/L (96-108); Estimated Glomerular Filt Rate > 60; Glucose Random 137 mg/dL (60-115); Magnesium 2.1 mg/dL (1.6-2.6); Sodium 141 mmol/L (135-145); Total Protein 7.5 g/dL (6.5-8.0)
[2024-05-12 09:11] LABS: SLIDE REVIEW VERIFIED
[2024-05-12 09:32] LABS: COVID-19 Test Negative (Negative); IDNOW Serial# 08D9AD1C
[2024-05-12 10:29] VITALS: BP 112/60; PULSE 69; RESP 20; TEMP 36.6; O2SAT 99
[2024-05-12 12:14] VITALS: BP 107/69; PULSE 80; RESP 16; TEMP 36.6; O2SAT 96
--- NOTE | 2024-05-12 12:54 | PC.NURSE ---
RN to RN phone report given to Katy in overflow, patient on his way over.
--- NOTE | 2024-05-12 14:20 | MHC.CM.ED ---
Received case management consult from Dr Valverde. Patient came to the ER due to knee pain and difficulty walking. Physical therapy eval completed. Short term rehab is recommended. Referral broadcasted in [employer]. [facility], [facility], [facility], [facility]. Met with patient in regards to discharge planning. Patient lives with a friend. PCP verified as Jaqueline Cifuentes. HCP completed, signed and witnessed. Facility choices discussed. Patient chooses [facility]. [facility] asked [facility] obtain insurance auth. Continue to monitor for d/c needs.
[2024-05-12 19:21] VITALS: RESP 18
[2024-05-12 19:51] VITALS: BP 110/60; PULSE 61; RESP 17; TEMP 36.5; O2SAT 99
--- NOTE | 2024-05-12 21:36 | PC.NURSE ---
Assumed care of patient at 19:00. Patient continues in ED overflow. Uzbek and Croatian speaking; pt declined offered poultry killer and is able to make his needs known. A&Ox4. Speech clear. Pt is pleasant and cooperative. VSS. Pt only complaint is continued pain in my legs . Patient reports some improvement with prn morphine on reassessment. Ice packs applied with additional improvement reported per patient. +radial and dp pulses. +cms. -edema. MAEE. Pt denies numbness and tingling. Breathing is even and unlabored without distress on RA. Voids cyu in urinal in adequate amounts. Denies n/v. Tolerating po intake. Bed alarm on and safety measures in place.
[2024-05-13] MEDS: Morphine Sulfate Immed Release 15 MG TABLET PO ×2 (00:16→09:58)
[2024-05-13 01:16] VITALS: RESP 16
[2024-05-13 04:48] VITALS: BP 102/54; PULSE 50; RESP 15; TEMP 36.5; O2SAT 99
[2024-05-13] MEDS: predniSONE 20 MG TABLET 40 MG PO (09:55)
[2024-05-13] MEDS: Apixaban 5 MG TABLET PO (09:55)
--- NOTE | 2024-05-13 10:05 | MHC.CM.ED ---
[facility]. ID Booking # [id number]. Provider and Primary RN aware. Facility is requesting a script for oxycodone. Provider aware. Son called and updated on plan of care. Med nec/face sheet and ED worksheet to gunite mixer.
[2024-05-13 10:07] VITALS: BMI 29.5
--- NOTE | 2024-05-13 10:07 | PHA.MEDREC ---
Pharmacy Consult ? Medication Reconciliation Pharmacy has completed the medication reconciliation. Spoke to patient at bedside, confirmed he still takes Atorvastatin, Allopurinol, and Baclofen, just hasn't had them delivered for some time.
== END 2024-05-13 11:37 ==
PROVIDERS: Emergency Provider Emergency Medicine; PCP Registered Nurse
DX: M25.462 Effusion, left knee (principal); M79.605 Pain in left leg; E78.5 Hyperlipidemia, unspecified; R06.09 Other forms of dyspnea; F17.210 Nicotine dependence, cigarettes, uncomplicated; Z86.711 Personal history of pulmonary embolism; Z79.01 Long term (current) use of anticoagulants; Z11.52 Encounter for screening for COVID-19
CPT/HCPCS: 36415; 80048; 80076; 83735; 85025; 87635; 97162; 99284; 99285

== ENCOUNTER 2024-06-20 14:17 | Emergency (ER) | payer OTHER, SELFPAY ==
--- NOTE | ~2024-06-20 | XR_ITS ---
EXAMINATION: XR KNEE, LEFT CLINICAL INFORMATION: Left knee pain COMPARISON: Left knee 09/10/2023 TECHNIQUE: Four views of the left knee. FINDINGS: Again seen are severe tricompartmental degenerative changes with marked narrowing in all compartments most marked laterally and at the patellofemoral compartment. Some mild chondrocalcinosis is seen in the lateral meniscus, better visualized previously. No fractures or dislocations. XR/XR knee LT 4V IMPRESSION: Severe tricompartmental degenerative changes. No acute finding.
[2024-06-20 14:58] VITALS: BP 125/59; BP 134/86; PULSE 102; PULSE 93; RESP 18; TEMP 37; O2SAT 97; BMI 27.7
--- NOTE | 2024-06-20 15:06 | ED_ITS ---
HPI - General Adult General Chief complaint: General Medical Stated complaint: BILAT LEG PAIN, NO AMB Time Seen by Provider: 06/20/24 15:03 Source: patient and EMS Mode of arrival: EMS Limitations: no limitations History of Present Illness HPI narrative: 59-year-old male past medical history significant for arthritis obesity PE on Eliquis obesity and gout patient has had approximately 5 weeks of left knee pain unable to take care of himself he has been on prednisone and Percocet. Patient was at a local skilled nursing in [place] was discharged today after prolonged stay here in the ER patient went to a motel and called EMS for chronic knee pain. Patient has any falls or injuries denies fevers chills cough or shortness of breath. Related Data Home Medications ?Medication ?Instructions ?Recorded ?Confirmed albuterol sulfate 90 mcg/actuation 2 puff inhalation DAILY PRN 09/10/23 05/13/24 aerosol inhaler (ProAir HFA) Wheezing allopurinol 100 mg tablet 100 mg PO DAILY 09/10/23 05/13/24 apixaban 5 mg tablet (Eliquis) 5 mg PO BID 09/10/23 05/13/24 atorvastatin 40 mg tablet 40 mg PO DAILY 09/10/23 05/13/24 baclofen 10 mg tablet 10 mg PO TID 09/10/23 05/13/24 oxycodone-acetaminophen 5 mg-325 1 tab PO TID PRN Pain (Scale Score 09/10/23 05/13/24 mg tablet (Percocet) 4-6) umeclidinium 62.5 mcg/actuation 1 inh inhalation DAILY 09/10/23 05/13/24 blister powder for inhalation (Incruse Ellipta) Previous Rx's ?Medication ?Instructions ?Recorded prednisone 20 mg tablet 40 mg (2 x 20 mg) PO DAILY #10 tabs 05/11/24 oxycodone-acetaminophen 5 mg-325 1 tab PO TID PRN moderate pain 05/13/24 mg tablet (scale score 5-6) #9 tabs Allergies Allergy/AdvReac Type Severity Reaction Status Date / Time No Known Allergies Allergy Verified 06/20/24 15:00 [facility] Past Medical History Medical History Osteoarthritis Pulmonary embolism STALLINGS (dyspnea on exertion) HLD (hyperlipidemia) Pterygium of eye Depression Gout Obesity Knee pain Surgical History H/O: knee surgery Social History Social History Household Members: Other Housing: Apartment Unable to assess alcohol history related to: Unknown Patient Tobacco Use Status: Current everyday Tobacco user Tobacco use type: Cigarette Smoked in Last 30 Days: No Use of substances other than those prescribed or required for medical reasons: No Advance Directives: Yes Advance Directives on File: Yes Advance Directives Date on File: 05/12/24 service: No Current occupational status: disabled Physical Exam ED Vital Signs: Vital Signs - 24 hr 06/20/24 14:58 Temperature 98.6 F Pulse Rate 93 Respiratory Rate 18 Blood Pressure 125/59 L Pulse Oximetry 97 Oxygen Delivery Method Room Air BMI result Body Mass Index 27.7 Medical Decision Making Medical Decision Making MDM Narrative: I will get case management involved again Differential Diagnosis Differential Diagnoses: The differential diagnosis associated with the presentation includes Chronic arthritis of the knee failure to thrive Consult Healthcare Provider Management of the patient was discussed with: Plate Hanger Lab Data [facility] Lab Attestation statement: I reviewed the patient's lab results. 06/20/24 16:14 06/20/24 16:14 Labs: Lab Results 06/20/24 Range/Units 16:14 WBC 14.4 H (4.8-10.8) X10*3/uL RBC 3.99 L (4.60-5.80) X10*6/uL Hgb 10.6 L (14.0-18.0) g/dl Hct 32.1 L (42.0-52.0) % MCV 80.5 (80.0-98.0) fL MCH 26.6 L (27.0-33.0) pg MCHC 33.0 (31.0-36.0) g/dl RDW 18.1 H (11.0-16.0) % Plt Count 295 D (160-400) X10*3/uL MPV 9.9 (9.4-12.4) fL Immature Gran % (Auto) 0.3 (0.0-0.4) % Neut % (Auto) 78.3 H (45-73) % Lymph % (Auto) 8.7 L (20-40) % Woodruff % (Auto) 12.4 H (2-11) % Eos % (Auto) 0.1 (0-4) % Baso % (Auto) 0.2 (0-2) % Lymph # (Auto) 1.3 (1.2-4.9) X10*3/uL Woodruff # (Auto) 1.8 H (0.1-1.2) X10*3/uL Eos # (Auto) 0.0 (0.0-0.4) X10*3/uL Baso # (Auto) 0.0 (0.0-0.2) X10*3/uL Abs Immat Gran (auto) 0.05 H (0.00-0.03) X10*3/uL Absolute Neuts (auto) 11.3 H (2.0-8.3) x10*3/uL Absolute Nucleated RBC 0.000 (0.0-0.012) X10*3/uL Nucleated RBC % (auto) 0.0 (0.0-0.2) /100WBC Sodium 134 L (135-145) mmol/L Potassium 4.0 (3.3-5.1) mmol/L Chloride 99 (96-108) mmol/L Carbon Dioxide 25 (22-29) mmol/L Anion Gap 14 (12-20) BUN 9 (9-16) mg/dL Creatinine 0.83 (0.5-1.4) mg/dL Estim Creat Clear Calc 106.1 Estimated GFR > 60 Random Glucose 98 (60-115) mg/dL Calcium 9.5 (8.4-10.2) mg/dL Independent Interpretation I performed an independent interpretation of an: Plain X-Ray Radiology Impression Discussion of test interpretation with radiology: I have reviewed the radiologist's reading. External Record Review External record reviewed: Inpatient record, Office record, Outpatient record and Prior outpatient labs Discharge Plan Discharge Clinical Impression: Left knee pain, Failure to thrive in adult Patient Disposition: Still a Patient Prescriptions: No Action prednisone 20 mg tablet 40 mg PO DAILY Qty: 10 0RF oxycodone-acetaminophen 5-325 mg tablet 1 tab PO TID PRN (Reason: moderate pain (scale score 5-6)) Qty: 9 0RF Rx Instructions: Partial Fill upon patient request. oxycodone-acetaminophen [Percocet] 5-325 mg tablet 1 tab PO TID PRN (Reason: Pain (Scale Score 4-6)) baclofen 10 mg tablet 10 mg PO TID Eliquis 5 mg tablet 5 mg PO BID Incruse Ellipta 62.5 mcg/actuation blister with device 1 inh inhalation DAILY albuterol sulfate [ProAir HFA] 90 mcg/actuation HFA aerosol inhaler 2 puff inhalation DAILY PRN (Reason: Wheezing) allopurinol 100 mg tablet 100 mg PO DAILY atorvastatin 40 mg tablet 40 mg PO DAILY Print Language: Mohawk
--- NOTE | 2024-06-20 15:40 | PC.NURSE ---
Pt presents to ED via EMS from [facility], reports bilat leg pain starting this morning. Reports this is chronic issue over last months, was d/c from [facility] today after 1 month of rehab for leg pain. Reports he has no where to live so he went to [facility]. Alert and oriented, breathing even and unlabored, skin WNL. Refusing to change into hospital attire. Denies falls, SOB, CP
[2024-06-20 16:24] LABS: Basophils Percent Auto 0.2 % (0-2); Eosinophils Percent Auto 0.1 % (0-4); Hematocrit 32.1 % (42.0-52.0); Hemoglobin 10.6 g/dl (14.0-18.0); Imm Gran Abs Auto 0.05 X10*3/uL (0.00-0.03); Imm Gran Pct Auto 0.3 % (0.0-0.4); Lymphocytes Absolute Auto 1.3 X10*3/uL (1.2-4.9); Lymphocytes Percent Auto 8.7 % (20-40); MANUAL DIFF FLAG SCAN; Mean Corpuscular Hemoglobin 26.6 pg (27.0-33.0); Mean Corpuscular Volume 80.5 fL (80.0-98.0); Mean Platelet Volume 9.9 fL (9.4-12.4); Monocytes Absolute Auto 1.8 X10*3/uL (0.1-1.2); Monocytes Percent Auto 12.4 % (2-11); Neutrophils Absolute Auto 11.3 x10*3/uL (2.0-8.3); Neutrophils Percent Auto 78.3 % (45-73); Platelet Count 295 X10*3/uL (160-400); Red Blood Count 3.99 X10*6/uL (4.60-5.80); Red Cell Distribution Width 18.1 % (11.0-16.0); SCAN SMEAR FLAG 1; White Blood Count 14.4 X10*3/uL (4.8-10.8)
[2024-06-20 16:46] LABS: Anion Gap 14 (12-20); Blood Urea Nitrogen 9 mg/dL (9-16); Calcium 9.5 mg/dL (8.4-10.2); Carbon Dioxide 25 mmol/L (22-29); Chloride 99 mmol/L (96-108); Creatinine Clr Calc Pharmacy 106.1; Estimated Glomerular Filt Rate > 60; Glucose Random 98 mg/dL (60-115); Sodium 134 mmol/L (135-145)
[2024-06-20 17:46] LABS: SLIDE REVIEW VERIFIED
--- NOTE | 2024-06-20 18:09 | MHC.CM.ED ---
CM met with patient at the request of Dr. Lebdetter. Pt is homeless. C/O knee pain and difficulty ambulating. Was discharge from [facility] on 05/13 to [facility]. Pt was discharged from [facility] on 06/20. Pt states he has been staying in a Motel since discharge.He states for 3 days. He has been staying at the [facility] in [place]. Pt states he was supposed to discharge from Rehab to his friends apartment, where he was living before rehab, but on discharge day, he was told he could not live with him any more. Pt feels he needs more rehab. PT is pending. Pt is aware that if PT does not recommend more STR or if the insurance company does not authorize payment, then CM can try for respite bed, if unsuccessful, then patient will need to D/C to correction. Pt understands and is grateful for any help CM can provide. CM explained that obtaining housing is not something I can do. Pt states he has completed application for section 8 housing, but he has not heard anything. CM explained that there is a waiting list for housing. Pt has [facility] insurance. Explained to pt that his lawn care specialist at [facility] should be able to help him. CM will call [facility] in the morning and request that Rn Accesstooth cutter contact wheel patient. CM verified patient telephone ([phone]). Pt is currently homeless, uses a walker and has no services. PCP is Estela Barber at the [facility]. HCP is on file. Pt son is the HCP. Pt states he cannot live with his son, as he is and has a family. Pt is hesitant to contact his son for help. CM will place referrals for STR, pending PT evaluation. CM will follow for discharge planning.
--- NOTE | 2024-06-20 19:08 | MHC.EDTECH ---
T/w taking a list of belongings and Pt mentioned he had medications with him. RN Herson was notified and RN looked through Pts medications, and stated ok to leave in bag.
[2024-06-20 19:19] VITALS: BP 145/67; PULSE 62; RESP 16; TEMP 36.2; O2SAT 97
--- NOTE | 2024-06-20 19:22 | PC.NURSE ---
pt arrived to ED overflow bed 5 from ED room 9. This RN began shift at 19:00 and did not receive report on this pt.will read chart to obtain info. per pt he uses a walker to ambulate but has been having difficulty bearing weight due to knee pain (chronic). pt was d/c from [facility] today, went to a motel d/t homelessness, called ems reporting pain to knee, and thinks he needs more STR. CM saw pt in ED, note written that pt will see PT in AM for discharge planning. urinal given to pt , vital signs updated. plan of care ongoing.
--- NOTE | 2024-06-20 19:28 | MHC.EDTECH ---
Patient just came to overflow from the main ed ,Vitals taken Patient refused to change into hospital gown YANIQUE James aware .
--- NOTE | 2024-06-20 19:38 | PC.NURSE ---
med rec complete using pt medical record and verified with patient based on scripts he has with him. no controlled medications with patient, previously documented by ED RN/Tech in pt belongings list.
[2024-06-20] MEDS: Acetaminophen 325 MG TABLET PO (20:22)
[2024-06-20] MEDS: Apixaban 5 MG TABLET PO (20:22)
[2024-06-20] MEDS: oxyCODONE HCl Immed Release 5 MG TABLET PO (20:22)
[2024-06-20] MEDS: Baclofen 10 MG TABLET PO (20:22)
--- NOTE | 2024-06-20 20:25 | PC.NURSE ---
home medications ordered by MD Ledbetter and administered per jan. pt offered his albuterol inhaler however does not need it right now. pt sticker placed on albuterol and placed in pt chart.
--- NOTE | 2024-06-20 23:10 | MHC.EDTECH ---
pt given water. resting quietly. resp even and unlabored.
[2024-06-21] VITALS (7 sets, daily range): BP systolic 96–143; BP diastolic 55–75; PULSE 59–72; RESP 12–18; TEMP 36.8–37.6; O2SAT 100
[2024-06-21] MEDS: oxyCODONE HCl Immed Release 5 MG TABLET PO ×3 (06:34→22:36)
[2024-06-21] MEDS: Acetaminophen 325 MG TABLET PO ×3 (06:34→22:35)
[2024-06-21] MEDS: Atorvastatin Calcium 40 MG TABLET PO (08:17)
[2024-06-21] MEDS: Baclofen 10 MG TABLET PO ×3 (08:17→20:35)
[2024-06-21] MEDS: Apixaban 5 MG TABLET PO ×2 (08:17→20:35)
[2024-06-21] MEDS: allopurinoL 100 MG TABLET PO (08:17)
--- NOTE | 2024-06-21 09:36 | PHA.MEDREC ---
Addendum entered by Alanis Lowry wing 06/21/24 09:59: reviewed Original Note: Pharmacy Consult ? Medication Reconciliation Pharmacy has completed the medication reconciliation. Confirmed medications with patient. Patient confirmed he takes his Allopurinol 100mg tab as needed for gout attacks. He also confirmed his Oxycodone-Acetaminophen 5-325mg tabs 1 Q8H as needed for pain.
--- NOTE | 2024-06-21 13:43 | MHC.CM.PN ---
This CM called [facility] and spoke with Alfredo, per Alfredo we can place referrals out for STR, they will then need to get [facility] auth if we get a facility bed offer. Referral updated, no current bed offers at this time.
--- NOTE | 2024-06-21 19:32 | MHC.CM.ED ---
PT is recommending STR. No bed offers. Referrals made 50 miles. Pt is homeless, may be a barrier to bed offers. CM will follow for d/s planning.
--- NOTE | 2024-06-21 22:43 | PC.NURSE ---
Report taken from Mamta CHANEL assumed care of pt at 1900. A&Ox3 skin pwd respirations even unlabored. Endorsing left knee pain 07/26, medicated per MAR with PRN pain med. Using bedside urinal independently. Plan for STR, CM bedsearch. Will continue to monitor for additional needs.
--- NOTE | 2024-06-21 23:47 | MHC.EDTECH ---
This tech took over care of patient at 2300, rounds completed,patient urinated 450MLS of yellow urine in urinal,patient is resting quietly,call isbell in reach
[2024-06-22 05:32] VITALS: BP 104/59; PULSE 57; RESP 18; TEMP 37.1; O2SAT 99
--- NOTE | 2024-06-22 05:33 | MHC.EDTECH ---
Hourly rounds and vitals completed,patient is resting quietly call isbell in reach
[2024-06-22] MEDS: oxyCODONE HCl Immed Release 5 MG TABLET PO ×3 (06:13→21:25)
--- NOTE | 2024-06-22 06:14 | PC.NURSE ---
pt does not want PRN acetaminophen
--- NOTE | 2024-06-22 06:40 | MHC.EDTECH ---
Emptied 800MLS from urinal, can of becky ribeiro given per request
[2024-06-22] MEDS: Atorvastatin Calcium 40 MG TABLET PO (08:19)
[2024-06-22] MEDS: Apixaban 5 MG TABLET PO ×2 (08:19→21:25)
[2024-06-22] MEDS: Baclofen 10 MG TABLET PO ×3 (08:19→21:25)
--- NOTE | 2024-06-22 08:55 | MHC.CM.PN ---
Addendum entered by Cristiana Cole RN 06/22/24 09:26: PER ED PROVIDER PT ADMITS TO USING HEROIN 2 BAGS DAILY, ADDICTION MEDICINE TO SEE PT WHO WILL BE STARTED ON METHADONE, CM WILL UPDATE SNF'S ONCE BED OFFERS COME IN, [facility] AND [facility] TAKE METHADONE. Original Note: EMR REVIEWED, NO BED OFFERS, SNF REFERRAL EXPANDED TO ADDITIONAL [facility] SNFS, [facility] AND [facility] REVIEWING, CM WILL CONT TO FOLLOW.
[2024-06-22] MEDS: methADONE HCl 20 MG/2 ML ORAL.CONC 30 MG PO (10:24)
--- NOTE | 2024-06-22 11:27 | MHC.RECOVRN ---
Met with pt in Overflow 5 after consult placed to Addiction Medicine for opioid use and withdrawal symptoms. Pt had presented to the ED on 06/20 after discharging from [facility] earlier that day, reporting knee pain and difficulty ambulating. Pt felt he needed more rehab and after PT eval, dispo is STR. Pt laying in bed, awake, alert, easily engages in conversation, tearful at times. Pt reports heroin/fentanyl use, 2-3 bundles daily, IN, x 2 years. Pt reports he began using 2 years ago after being prescribed Percocet for years and provider discontinuing medication. Pt reports currently feeling hot/cold, diaphoresis, and restless legs. Denies stomach upset. Pt reports his family is unaware of use and is concerned regarding them being made aware. Pt reassured information is not shared without patient's permission. Pt reports he has tried methadone and Suboxone on the street and would like to initiate methadone while here and continue after discharge. Pt aware coordination of care would need to be made between STR and OTP, verbalizes understanding. Pt denies other questions or concerns for t/w. Discussed with Estela Kaiser APRN as well as RN and CM.
--- NOTE | 2024-06-22 11:53 | PC.NURSE ---
took over care of patient at 9am, pt a&ox3, vss, pt stated to the previous nurse that he felt sick and told her he was dope sick however the nurse at the time hadn't had the opportunity to inquire more as this nurse had come in to take over. This nurse then went to speak with the patient who stated he has been snorting 2-3 bundles per day pt was near tears while divulging this information to this nurse. pt repeatedly asked that we did not tell anybody in his family as they did not know of this habit. Pt was reassured that this would not be discussed with family. ED provider was notified and an addiction consult was placed. pt was medicated with methadone that was ordered, case management was notified for placement in a facility that was able to administer methadone. pts rr is equal/non labored, call isbell within reach, will continue to monitor
--- NOTE | 2024-06-22 12:16 | MHC.CM.PN ---
EMR RECEIVED BED OFFER FROM [facility], UPDATED H&P, MED LIST AND RECOVERY TEAM NOTE SENT, MELTER OPERATOR AWARE PT WILL NEED GUEST DOSING AT [facility] [place], PT WILL NEED INSURANCE AUTH, CM FOLLOWING.
--- NOTE | 2024-06-22 14:06 | MHC.RECOVRN ---
Pts referral sent to [facility].
[2024-06-22 14:13] VITALS: BP 127/73; PULSE 50; RESP 18; TEMP 37.1; O2SAT 99
[2024-06-22] MEDS: methADONE HCl 20 MG/2 ML ORAL.CONC 10 MG PO (15:23)
--- NOTE | 2024-06-22 15:27 | PC.NURSE ---
pt c/o 9/10 lower extremity pain, pt medicated per order
--- NOTE | 2024-06-22 20:58 | MHC.CM.ED ---
CM met with patient to discuss discharge planning. Pt notified that [facility] has offered a bed. Explained that there are no local bed offers and that many facilities do not accept patients on Methadone. Pt not pleased about going to [facility] for rehab. CM explained that patient is homeless and that PT recommended [facility], so his choices are limited. Pt is aware that insurance authorization my take up to 2 days. Pt is aware that if he refuses offered placement, then he will be discharged with a alf list. CM enc patient to go to rehab.
[2024-06-22 22:23] VITALS: BP 107/58; PULSE 62; RESP 18; TEMP 37; O2SAT 98
[2024-06-23 00:53] VITALS: PULSE 89
[2024-06-23] MEDS: methADONE HCl 20 MG/2 ML ORAL.CONC 10 MG PO (01:16)
[2024-06-23 05:55] VITALS: BP 138/72; PULSE 55; RESP 18; TEMP 36.3; O2SAT 100
[2024-06-23] MEDS: Apixaban 5 MG TABLET PO ×2 (08:19→21:28)
[2024-06-23] MEDS: Atorvastatin Calcium 40 MG TABLET PO (08:19)
[2024-06-23] MEDS: Baclofen 10 MG TABLET PO ×3 (08:19→21:28)
[2024-06-23] MEDS: oxyCODONE HCl Immed Release 5 MG TABLET PO ×2 (08:26→16:39)
[2024-06-23] MEDS: methADONE HCl 20 MG/2 ML ORAL.CONC 50 MG PO (08:54)
[2024-06-23] MEDS: Ondansetron ODT 4 MG TAB.RAPDIS TRANSLINGU ×2 (10:11→21:27)
--- NOTE | 2024-06-23 10:11 | PC.NURSE ---
pt verbalizes feeling nauseous. one time dose of zofran ordered/administered. effectiveness pending. pt also provided w/ gingerale/crackers. pt currently speaking w/ recovery team, YANIQUE Aburto at this time. plan of care ongoing.
--- NOTE | 2024-06-23 11:07 | MHC.RECOVRN ---
Met with pt to follow up and provide support. Pt laying in bed, awake, alert, easily engages in conversation. Reports feeling better in regards to withdrawal/methadone. Pt agreeable to [facility] placement. Denies questions or concerns at this time.
--- NOTE | 2024-06-23 13:51 | HO.ADDICTPRO ---
Subjective Subjective Date of Service: 06/23/24 Reason For Visit: BILAT LEG PAIN, NO AMB Interim History: Patient seen in follow up --awaiting placement Seen by obstetrician/gynecologist on 06/22 following patient's report that he was experiencing opiate withdrawal Substance use history reviewed with RN Methadone 40mg today administered on 06/22 to address withdrawal sx. Seen today in overflow, bed 5. Patient awake, alert, comfortably watching TV. He reports methadone is helping some , but he is still feeling restless, leg pain, body aches and chills. This morning he received methadone 50mg He has no objective signs of withdrawal at time of interview. History somewhat unclear as he reports that he started using heroin intranasal 2 years ago following abrupt discontinuation of percocet prescriptions. Mass Pat shows that patient has been receiving monthly percocet prescriptions for the at least the last 2 years. Denies any history of treatment for substance use. denies any history of overdose Review of Systems Constitutional: Reports as per [facility] Mental Status Exam Mental Status Exam Patient Appearance: Appropriate Level of Consciousness: Awake, Appropriate and Alert Patient Behavior: Appropriate and Talkative Mood Description: Calm Affect Description: Calm Diagnostics Vital Signs (24Hr): Vital Signs - 24 hr 06/22/24 14:13 06/22/24 22:23 06/23/24 05:55 Temperature 98.7 F 98.6 F 97.3 F Pulse Rate 50 62 55 Respiratory Rate 18 18 18 Blood Pressure 127/73 107/58 L 138/72 Pulse Oximetry 99 98 100 Oxygen Delivery Method Room Air Room Air Room Air BMI result Body Mass Index 27.7 Labs 06/20/24 16:14 06/20/24 16:14 Imaging Radiology Impressions: ITS Impressions Knee X-Ray 06/20/24 15:20 IMPRESSION: Severe tricompartmental degenerative changes. No acute finding. Medications Medications Current Medications Acetaminophen (Acetaminophen 325 Mg Tablet) 325 mg PO TID PRN PRN Reason: Pain, Moderate(Pain Scale 4-6) Last Admin: 06/21/24 22:35 Dose: 325 mg Albuterol Sulfate (Albuterol Sulfate 90 Mcg 8 Gm Inhaler) 2 puff INHALE DAILY PRN PRN Reason: Wheezing Allopurinol (Allopurinol 100 Mg Tablet) 100 mg PO DAILY LATISHA Last Admin: 06/23/24 08:20 Dose: Not Given Apixaban (Apixaban 5 Mg Tablet) 5 mg PO BID [facility] Last Admin: 06/23/24 08:19 Dose: 5 mg Atorvastatin Calcium (Atorvastatin Calcium 40 Mg Tablet) 40 mg PO DAILY [facility] Last Admin: 06/23/24 08:19 Dose: 40 mg Baclofen (Baclofen 10 Mg Tablet) 10 mg PO TID [facility] Last Admin: 06/23/24 08:19 Dose: 10 mg Methadone HCl (Methadone Hcl 20 Mg/2 Ml Oral.Conc) 50 mg PO DAILY [facility] Last Admin: 06/23/24 08:54 Dose: 50 mg Oxycodone HCl (Oxycodone Hcl Immed Release 5 Mg Tablet) 5 mg PO TID PRN PRN Reason: moderate pain (scale score 5-6) Last Admin: 06/23/24 08:26 Dose: 5 mg Allergies Allergies Allergy/AdvReac Type Severity Reaction Status Date / Time No Known Allergies Allergy Verified 06/20/24 15:00 Assessment & Plan Assessment & Plan (1) Opioid use disorder: Status: Acute Code(s): F11.90 - Opioid use, unspecified, uncomplicated Assessment and Plan: continue methadone --increase dose to 60mg in AM obstetrician/gynecologist coordinating referral to [facility]
[2024-06-23 14:00] VITALS: BP 128/78; PULSE 62; RESP 16; TEMP 37.1; O2SAT 100
[2024-06-23] MEDS: Fluticasone/Umeclidinium/Vilanterol 100/62.5/25 BLST.W.DEV 1 PUFF INHALE (15:34)
--- NOTE | 2024-06-23 17:22 | MHC.CM.ED ---
[facility] pending auth. Pt remains agreeable. All methadone paperwork faxed to [facility] per Addiction Medicine yesterday.
[2024-06-23 18:25] LABS: Amphetamine Screen Urine Not Detected (Not Detect); Barbiturates, Urine Not Detected (Not Detect); Benzodiazepines Screen Urine Not Detected (Not Detect); Buprenorphine Scr Not Detected (Not Detect); Cannabinoid Screen Urine Not Detected (Not Detect); Cocaine Screen Urine Not Detected (Not Detect); Fentanyl, urine POSITIVE (Not Detect); Methadone Screen, Urine Not Detected (Not Detect); Opiate Screen Urine Not Detected (Not Detect); Oxycodone Screen Urine Positive (Not Detect); Phencyclidine Screen Urine Not Detected (Not Detect)
[2024-06-23 20:51] VITALS: PULSE 65
[2024-06-23 20:57] VITALS: BP 143/76; PULSE 65; RESP 16; TEMP 37; O2SAT 100
--- NOTE | 2024-06-23 21:14 | ED_ITS ---
HPI - General Adult General Chief complaint: General Medical Stated complaint: BILAT LEG PAIN, NO AMB Time Seen by Provider: 06/20/24 15:03 Source: patient and EMS Mode of arrival: EMS Limitations: no limitations Related Data Home Medications ?Medication ?Instructions ?Recorded ?Confirmed albuterol sulfate 90 mcg/actuation 2 puff inhalation DAILY PRN 09/10/23 06/21/24 aerosol inhaler (ProAir HFA) Wheezing allopurinol 100 mg tablet 100 mg PO DAILY PRN Gout Attack 09/10/23 06/21/24 apixaban 5 mg tablet (Eliquis) 5 mg PO BID 09/10/23 06/21/24 atorvastatin 40 mg tablet 40 mg PO DAILY 09/10/23 06/21/24 baclofen 10 mg tablet 10 mg PO TID 09/10/23 06/21/24 oxycodone-acetaminophen 5 mg-325 1 tab PO Q8H PRN Pain (Scale Score 09/10/23 06/21/24 mg tablet (Percocet) 4-6) umeclidinium 62.5 mcg/actuation 1 inh inhalation DAILY 09/10/23 06/21/24 blister powder for inhalation (Incruse Ellipta) Allergies Allergy/AdvReac Type Severity Reaction Status Date / Time No Known Allergies Allergy Verified 06/20/24 15:00 [facility] Past Medical History Medical History Osteoarthritis Pulmonary embolism STALLINGS (dyspnea on exertion) HLD (hyperlipidemia) Pterygium of eye Depression Gout Obesity Knee pain Surgical History H/O: knee surgery Social History Social History Household Members: Other Housing: Apartment Unable to assess alcohol history related to: Unknown Patient Tobacco Use Status: Current everyday Tobacco user Tobacco use type: Cigarette Smoked in Last 30 Days: No Use of substances other than those prescribed or required for medical reasons: No Advance Directives: Yes Advance Directives on File: Yes Advance Directives Date on File: 05/12/24 service: No Current occupational status: disabled Physical Exam ED Vital Signs: Vital Signs - 24 hr 06/22/24 22:23 06/23/24 05:55 06/23/24 14:00 Temperature 98.6 F 97.3 F 98.7 F Pulse Rate 62 55 62 Respiratory Rate 18 18 16 Blood Pressure 107/58 L 138/72 128/78 Pulse Oximetry 98 100 100 Oxygen Delivery Method Room Air Room Air Room Air 06/23/24 20:57 Temperature 98.6 F Pulse Rate 65 Respiratory Rate 16 Blood Pressure 143/76 H Pulse Oximetry 100 Oxygen Delivery Method Room Air BMI result Body Mass Index 27.7 Course Course Course Narrative: 06/23/24 21:14 Notified by RN in [facility] that patient is complaining of withdrawal symptoms from heroin use. COWS score of 9. Ondansetron, acetaminophen, clonidine, and bentyl ordered. Medications Administered Generic Name Dose Route Start Last Admin Trade Name Freq PRN Reason Stop Dose Admin Acetaminophen 325 mg 06/20/24 19:56 06/21/24 22:35 Acetaminophen 325 Mg Tablet PO 325 mg TID PRN Administration Pain, Moderate(Pain Scale 4-6) Allopurinol 100 mg 06/21/24 09:00 06/23/24 08:20 Allopurinol 100 Mg Tablet PO Not Given DAILY LATISHA Apixaban 5 mg 06/20/24 21:00 06/23/24 08:19 Apixaban 5 Mg Tablet PO 5 mg BID LATISHA Administration Atorvastatin Calcium 40 mg 06/21/24 09:00 06/23/24 08:19 Atorvastatin Calcium 40 Mg Tablet PO 40 mg DAILY LATISHA Administration Baclofen 10 mg 06/20/24 21:00 06/23/24 15:17 Baclofen 10 Mg Tablet PO 10 mg TID LATISHA Administration Oxycodone HCl 5 mg 06/20/24 19:55 06/23/24 16:39 Oxycodone Hcl Immed Release 5 Mg Tablet PO 5 mg TID PRN Administration moderate pain (scale score 5-6) Discontinued Medications Generic Name Dose Route Start Last Admin Trade Name Freq PRN Reason Stop Dose Admin Fluticasone/Umeclidinium/Vilanterol 1 puff 06/23/24 15:05 06/23/24 15:34 Fluticasone/Umeclidinium/Vilanterol 100/62.5/25 Blst.W.Dev INHALE 06/23/24 15:06 1 puff ONCE ONE Administration Lorazepam 2 mg 06/22/24 09:23 06/22/24 09:36 Lorazepam 1 Mg Tablet PO 06/22/24 09:24 Not Given ONCE ONE Methadone HCl 30 mg 06/22/24 09:48 06/22/24 10:24 Methadone Hcl 20 Mg/2 Ml Oral.Conc PO 06/22/24 09:49 30 mg ONCE ONE Administration Methadone HCl 10 mg 06/22/24 15:12 06/22/24 15:23 Methadone Hcl 20 Mg/2 Ml Oral.Conc PO 06/22/24 15:13 10 mg ONCE ONE Administration Methadone HCl 50 mg 06/23/24 09:00 06/23/24 08:54 Methadone Hcl 20 Mg/2 Ml Oral.Conc PO 50 mg DAILY LATISHA Administration Methadone HCl 10 mg 06/23/24 01:07 06/23/24 01:16 Methadone Hcl 20 Mg/2 Ml Oral.Conc PO 06/23/24 01:08 10 mg ONCE ONE Administration Ondansetron HCl 4 mg 06/23/24 10:07 06/23/24 10:11 Ondansetron Odt 4 Mg Tab.Rapdis TRANSLINGU 06/23/24 10:08 4 mg ONCE ONE Administration Medical Decision Making Lab Data 06/20/24 16:14 06/20/24 16:14 Labs: Lab Results 06/20/24 06/23/24 Range/Units 16:14 17:44 WBC 14.4 H (4.8-10.8) X10*3/uL RBC 3.99 L (4.60-5.80) X10*6/uL Hgb 10.6 L (14.0-18.0) g/dl Hct 32.1 L (42.0-52.0) % MCV 80.5 (80.0-98.0) fL MCH 26.6 L (27.0-33.0) pg MCHC 33.0 (31.0-36.0) g/dl RDW 18.1 H (11.0-16.0) % Plt Count 295 D (160-400) X10*3/uL MPV 9.9 (9.4-12.4) fL Immature Gran % (Auto) 0.3 (0.0-0.4) % Neut % (Auto) 78.3 H (45-73) % Lymph % (Auto) 8.7 L (20-40) % [place] % (Auto) 12.4 H (2-11) % Eos % (Auto) 0.1 (0-4) % Baso % (Auto) 0.2 (0-2) % Lymph # (Auto) 1.3 (1.2-4.9) X10*3/uL [place] # (Auto) 1.8 H (0.1-1.2) X10*3/uL Eos # (Auto) 0.0 (0.0-0.4) X10*3/uL Baso # (Auto) 0.0 (0.0-0.2) X10*3/uL Abs Immat Gran (auto) 0.05 H (0.00-0.03) X10*3/uL Absolute Neuts (auto) 11.3 H (2.0-8.3) x10*3/uL Absolute Nucleated RBC 0.000 (0.0-0.012) X10*3/uL Nucleated RBC % (auto) 0.0 (0.0-0.2) /100WBC Smear Tech's Comments VERIFIED Sodium 134 L (135-145) mmol/L Potassium 4.0 (3.3-5.1) mmol/L Chloride 99 (96-108) mmol/L Carbon Dioxide 25 (22-29) mmol/L Anion Gap 14 (12-20) BUN 9 (9-16) mg/dL Creatinine 0.83 (0.5-1.4) mg/dL Estim Creat Clear Calc 106.1 Estimated GFR > 60 Random Glucose 98 (60-115) mg/dL Calcium 9.5 (8.4-10.2) mg/dL Urine Opiates Screen Not Detected (Not Detect) Ur Buprenorphine Scrn Not Detected (Not Detect) ng/mL Ur Oxycodone Screen Positive H (Not Detect) ng/mL Urine Methadone Screen Not Detected (Not Detect) ng/mL Urine Fentanyl Screen POSITIVE H (Not Detect) Ur Barbiturates Screen Not Detected (Not Detect) Ur Phencyclidine Scrn Not Detected (Not Detect) Ur Amphetamines Screen Not Detected (Not Detect) U Benzodiazepines Scrn Not Detected (Not Detect) Urine Cocaine Screen Not Detected (Not Detect) U Marijuana (THC) Screen Not Detected (Not Detect) Discharge Plan Discharge Clinical Impression: Failure to thrive in adult Left knee pain Qualifiers: Chronicity: acute Qualified Code(s): M25.562 - Pain in left knee Patient Disposition: Still a Patient Prescriptions: No Action oxycodone-acetaminophen [Percocet] 5-325 mg tablet 1 tab PO Q8H PRN (Reason: Pain (Scale Score 4-6)) baclofen 10 mg tablet 10 mg PO TID Eliquis 5 mg tablet 5 mg PO BID Incruse Ellipta 62.5 mcg/actuation blister with device 1 inh inhalation DAILY albuterol sulfate [ProAir HFA] 90 mcg/actuation HFA aerosol inhaler 2 puff inhalation DAILY PRN (Reason: Wheezing) allopurinol 100 mg tablet 100 mg PO DAILY PRN (Reason: Gout Attack) atorvastatin 40 mg tablet 40 mg PO DAILY Referrals: [facility] [Outside] - 1 day (SHORT TERM REHAB) Print Language: Paraguayan
--- NOTE | 2024-06-23 21:18 | MHC.EDTECH ---
THIS PCT OFFER PATIENT TO WASH UP ,PT SAID HE WAS FINE WILL WASH UP TOMORROW ,HAD 2 ICE CREAM FOR SNACK 550 ML EMPTY FROM [facility] .CALL TATE WITHIN PT REACH .
[2024-06-23 21:27] VITALS: BP 143/76
[2024-06-23] MEDS: cloNIDine HCL 0.1 MG TABLET PO (21:27)
[2024-06-23] MEDS: Acetaminophen 325 MG TABLET 975 MG PO (21:27)
[2024-06-23] MEDS: Dicyclomine HCl 10 MG CAPSULE PO (21:28)
--- NOTE | 2024-06-23 22:30 | PC.NURSE ---
Late note: Patient complaining of feeling dope sick stating that he was feeling shaky, nauseated, joint pain, sweats, and running nose. DATA ENTRY MACHINE OPERATOR Leslie Corona informed and ordered medications per JAN. Patient is currently resting on bed with eyes closed, no s/s of distress noted, patient breathing without difficulty
[2024-06-24] MEDS: oxyCODONE HCl Immed Release 5 MG TABLET PO ×2 (01:24→17:03)
[2024-06-24 06:10] VITALS: BP 111/57; PULSE 54; RESP 16; TEMP 36.2; O2SAT 96
[2024-06-24] MEDS: Fluticasone/Umeclidinium/Vilanterol 100/62.5/25 BLST.W.DEV 1 PUFF INHALE (07:35)
[2024-06-24 07:36] VITALS: PULSE 61; RESP 15; O2SAT 99
[2024-06-24] MEDS: Apixaban 5 MG TABLET PO (07:57)
[2024-06-24] MEDS: Atorvastatin Calcium 40 MG TABLET PO (07:57)
[2024-06-24] MEDS: Baclofen 10 MG TABLET PO ×2 (07:57→14:24)
[2024-06-24] MEDS: allopurinoL 100 MG TABLET PO (07:57)
[2024-06-24] MEDS: methADONE HCl 20 MG/2 ML ORAL.CONC 60 MG PO (07:58)
--- NOTE | 2024-06-24 10:03 | MHC.CM.ED ---
Addendum entered by Cherelle Townsned 06/24/24 14:44: Pt has been accepted to [facility] for a 4pm transfer via [facility]. Pt and son/HCP Cem aware and in agreement with plan. Original Note: Pt has been clinically accepted to [facility]: At this time, authorization is needed by facility from [facility] for the guest methadone dosing. ED CM to follow for finalization of transfer plans.
[2024-06-24 11:12] LABS: Amphetamine Screen Urine Not Detected (Not Detect); Barbiturates, Urine Not Detected (Not Detect); Benzodiazepines Screen Urine Not Detected (Not Detect); Buprenorphine Scr Not Detected (Not Detect); Cannabinoid Screen Urine Not Detected (Not Detect); Cocaine Screen Urine Not Detected (Not Detect); Fentanyl, urine POSITIVE (Not Detect); Methadone Screen, Urine Positive (Not Detect); Opiate Screen Urine Not Detected (Not Detect); Oxycodone Screen Urine Positive (Not Detect); Phencyclidine Screen Urine Not Detected (Not Detect)
--- NOTE | 2024-06-24 12:30 | PC.NURSE ---
pt ate a small amount of his lunch
[2024-06-24 14:23] VITALS: BP 113/66; PULSE 51; RESP 18; TEMP 36.4; O2SAT 99
--- NOTE | 2024-06-24 15:00 | PC.NURSE ---
[facility] report given to Eliezer CHANEL
--- NOTE | 2024-06-24 17:10 | MHC.CM.ED ---
Received word from Leonard foley Hachita that this patients transportation is on hold, pending booking number. Previous CM called [facility] and they were unable to obtain a booking number due to computer issues and they were supposed to call back with number. They have not called back. CM called [facility]. Booking number #[phone]. Suzi, Hachita at 5:30PM. Leonard aware.
[2024-06-24 18:30] VITALS: BP 113/66; PULSE 51; RESP 18; TEMP 36.4; O2SAT 99
== END 2024-06-24 18:31 ==
PROVIDERS: Nurse Practitioner Psychiatric/Mental Health; Emergency Provider Student in an Organized Health Care Education/Training Program
DX: F11.90 Opioid use, unspecified, uncomplicated (principal); G89.29 Other chronic pain; M25.562 Pain in left knee; R62.7 Adult failure to thrive; Z68.27 Body mass index [BMI] 27.0-27.9, adult; F32.A Depression, unspecified; R06.09 Other forms of dyspnea; E78.5 Hyperlipidemia, unspecified; F17.210 Nicotine dependence, cigarettes, uncomplicated; Z86.711 Personal history of pulmonary embolism; Z79.01 Long term (current) use of anticoagulants; Z79.02 Long term (current) use of antithrombotics/antiplatelets; Z79.899 Other long term (current) drug therapy
CPT/HCPCS: 36415; 73564; 80048; 80307; 85025; 97162; 99285; G2213

== ENCOUNTER → 2024-06-20 15:34 | Outpatient (BNV) | payer OTHER, SELFPAY | PROVIDERS: Emergency Provider Student in an Organized Health Care Education/Training Program; Visit Provider Nurse Practitioner Psychiatric/Mental Health | DX: F11.90 Opioid use, unspecified, uncomplicated (principal) | CPT/HCPCS: 99283 ==

== ENCOUNTER 2025-07-18 10:58 | Outpatient (AMB) | payer OTHER, SELFPAY ==
--- NOTE | 2025-07-18 11:14 | MHC.OFFVIS ---
Vital Signs 07/18/25 11:21 Height 5 ft 9 in Weight 230 lb BMI 34.0 Intake Visit Reasons: OV-B/L knee pain f/u Intake Note: Erick is a 60 year old male who presents with complaints of progressively worsening bilateral knee pains, left greater than right. He describes his knee pains as sharp and severe in nature, 10/10. At this point his left knee pain is interfering with his activities of daily living and his ability sleep well through the night. Has had multiple injections in the past. The most recent injection gave him no relief. He has also tried Tylenol which gives him minimal relief. He is not able to take anti-inflammatory medicines because he is on Eliquis. The patient has difficulty walking even short distances because of his left knee pain. Allergies No Known Allergies Allergy (Verified 07/18/25 11:21) Medication List - Last Reconciled 07/18/25 by Grayson Parker MD albuterol sulfate 90 mcg/actuation (ProAir HFA) 2 puffs inhalation DAILY PRN allopurinol 100 mg PO DAILY PRN apixaban (Eliquis) 5 mg PO BID atorvastatin 40 mg PO DAILY baclofen 10 mg PO TID tramadol 50 mg PO Q12H PRN umeclidinium 62.5 mcg/actuation (Incruse Ellipta) 1 inh inhalation DAILY PFSH Medical History Osteoarthritis Pulmonary embolism STALLINGS (dyspnea on exertion) HLD (hyperlipidemia) Pterygium of eye Depression Gout Obesity Knee pain Surgical History H/O: knee surgery Social History Household Members: Other Housing: Apartment Unable to assess alcohol history related to: Unknown Patient Tobacco Use Status: Current everyday Tobacco user Tobacco use type: Cigarette Advance Directives Date on File: 05/12/24 service: No Current occupational status: disabled Physical Exam Vital Signs: BMI result Body Mass Index 34.0 Const Other: Well-nourished well-developed very friendly male awake alert and oriented x3 in no acute distress Extrem Other: Bilateral lower extremity examination shows good capillary refill, no skin lesions noted, normal sensation light touch Bilateral knee examination shows minimal effusions, palpable crepitus with range of motion, pain with range of motion, range of motion from -5 degrees to 110 degrees, his patellae track well Results Reviewed Results Reviewed: X-rays of the patient's bilateral knees taken previously show end-stage degenerative joint disease with grade 4 [id number] arthritis, subchondral sclerosis, osteophyte formation, no acute bony abnormalities Assessment & Plan Assessment & Plan (1) Arthritis of left knee: Code(s): M17.12 - Unilateral primary osteoarthritis, left knee Category: Medical (2) Arthritis of right knee: Code(s): M17.11 - Unilateral primary osteoarthritis, right knee Category: Medical Plan Mr. Gannon presents with bilateral knee pains, left greater than right, due to end-stage degenerative joint disease. I had a lengthy discussion with the patient regarding the treatment options. At this point he has failed continued non operative treatments. The risks and benefits of left total knee replacement surgery were discussed at length with the patient. The patient is interested in proceeding with surgery. I will have my office contact the patient to pick a surgery date. I will see him back 1 week prior to his surgery to answer any final questions that he might have. If his right knee pain does become more bothersome to him then is his left at the time of his surgery we could certainly proceed with right total knee replacement surgery 1st. Feel free to call me at any time should questions regarding his orthopedic management arise. I spent 20 minutes in reviewing the patient's records and imaging studies, seeing the patient and documenting in the medical record. Coding Level of Care Code Est Pt Level 3 (78174) Complex EM visit Add On G2211 Diagnoses Arthritis of left knee M17.12 Arthritis of right knee M17.11
[2025-07-18 11:21] VITALS: BMI 34.0
--- OUTSIDE RECORDS SUMMARY | 2025-07-18 12:35 | XMS_ITS | Encounter Summary ---
Author Organization [facility] Address [address] [place] [address] Care Team Providers Care Optical Instrument Repairer Name Role Phone Estela Leos MD Primary Care Pro vider Reason for Visit * Reason Comments Med Refill Encounter Details Date Type Department Care Team (Late st Contact Info) Description 01/16/2025 Refill [facility] [address] [place] [address] Amber Devi ANP [address] [place] [address] Dorsalgia Social History Tobacco Use Types Packs/Day Years Used Date Smoking Tobacco: Every Day Cigarettes 0.3 22 Passive Smoke Exposure: Current Comments:Started at 21 y ,st opped for aprox 15 years and resumed for last year - 5 cig a day ,total smoking years 24 y , PQT a year rajendra 5.5 Alcohol Use Standard Drinks/Week Comments Never 0 (1 standard drink = 0.6 oz pur e alcohol) Depression Answer Date Recorded Patient Health Questionnaire-9 Score 7 07/09/2023 Housing Stability Answer Date Recorded What is your housing situation today? I do not have housing (Staying with others, in a hotel, in a fpc, living outside on the street, on a beach, in a car, or in a park 06/02/[address] you li ve. Do you have problems with any of the following? None of the above 06/02/2024 Food Insecurity Answer Date Recorded Within the past 12 months, y ou worried that your food would run out before you got money to buy more: Never True 06/02/2024 Within the past 12 months,th e food you bought just didn't last and you didn't have enough money to get more: Never True Transportation Answer Date Recorded In the past 12 months, has l ack of transportation kept you from medical appts, meetings, work or from getting things needed for daily living? No 06/02/2024 Utilities Answer Date Recorded In the past 12 months, has t he electric, gas, oil or water company threatened to shut off services in your home? No 06/02/2024 Depression Answer Date Recorded Patient Health Questionnaire-2 Score 2 07/09/2023 Internet Access Answer Date Recorded Internet Access Q1 Yes 07/15/2024 Internet Access Q2 Not on file 07/15/2024 Sex and Gender Information Value Date Recorded Sex Assigned at Male 09/15/2022 10:35 AM EDT Legal Sex Male 10:35 AM EDT Gender Identity Male 09/15/2022 10:35 AM EDT Sexual Orientation Straight 09/15/2022 10 :35 AM EDT documented as of this encounter Plan of Treatment Upcoming Encounters Date Type Department Care Team (Late st Contact Info) Description 07/21/2025 10:30 AM EDT Clinical Support [facility] [address] [place] [id number] Izzy Hull, YANIQUE [address] [place] [address] 08/01/2025 9:45 AM EDT Office Visit [facility] [address] [place] [phone] Estela Leos MD [address] [place] [phone] documented as of this encounter Visit Diagnoses Diagnosis Dorsalgia Pain in thoracic spine documented in this encounter Additional Health Concerns Assessment Noted Time PHQ-9 Depression Total Score: 7 07/09/20 23 1:56 PM EDT documented as of this encounter Care Teams Optical Instrument Repairer Relationship Specialty Start Date End Date Estela Leos MD [address] [place] [id number] PCP - General Internal Medicine 05/18/23 documented as of this encounter
--- OUTSIDE RECORDS SUMMARY | 2025-07-18 12:35 | XMS_ITS | Encounter Summary ---
Author Organization [employer] Address 75 [facility] 7 [place] [address] Care Team Providers Care River Crossing Supervisor Name Role Phone Estela Leos MD Primary Care Pro vider Reason for Visit * Reason Comments Med Refill Encounter Details Date Type Department Care Team (Late st Contact Info) Description 12/10/2023 Refill [facility] 230 [place] [address] Estela Leos MD 230 [place], [place] [phone] Dorsalgia Social History Tobacco Use Types Packs/Day [...] What is your housing situation today? I have darrel bhardwaj 09/03/[address] you li ve. Do you have problems with any of the following? None of the above 09/03/2023 Food Insecurity Answer Date Recorded Within the past 12 months, y ou worried that your food would run out before you got money to buy more: Never True 09/03/2023 Within the past 12 months,th e food you bought just didn't last and you didn't have enough money to get more: Never True Transportation Answer Date Recorded In the past 12 months, has l ack of transportation kept you from medical appts, meetings, work or from getting things needed for daily living? No 09/03/2023 Utilities Answer Date Recorded In the past 12 months, has t he electric, gas, oil or water company threatened to shut off services in your home? No 09/03/2023 Depression Answer Date Recorded Patient Health Questionnaire-2 Score 2 07/09/2023 Sex and Gender Information Value Date Recorded Sex Assigned at Male 09/15/2022 10:35 AM EDT Legal Sex Male 10:35 AM EDT Gender Identity Male 09/15/2022 10:35 AM EDT Sexual Orientation Straight 09/15/2022 10 :35 AM EDT documented as of this encounter Plan of Treatment Upcoming Encounters Date Type Department Care Team (Late st Contact Info) Description 07/21/2025 10:30 AM EDT Clinical Support [facility] [address] [place] [address] Izzy Hull, YANIQUE 505 [place] [address] 08/01/2025 9:45 AM EDT Office Visit [facility] [address] [place] [address] Estela Leos MD [address] [place] [address] documented as of this encounter Visit Diagnoses Diagnosis Dorsalgia Pain in thoracic spine documented in this encounter Additional Health Concerns Assessment Noted Time PHQ-9 Depression Total Score: 7 07/09/20 23 1:56 PM EDT documented as of this encounter Care Teams River Crossing Supervisor Relationship Specialty Start Date End Date Estela Leos MD [address] [place] [address] PCP - General Internal Medicine 05/18/23 documented as of this encounter
--- OUTSIDE RECORDS SUMMARY | 2025-07-18 12:35 | XMS_ITS | Encounter Summary ---
Author Organization [employer] Address [address] [facility] 7t [place] [address] Care Team Providers Care Component Lab Tech Name Role Phone Estela Leos MD Primary Care Pro vider Reason for Visit * Reason Comments Med Refill Encounter Details Date Type Department Care Team (Late st Contact Info) Description 11/11/2023 Refill [facility] 230 [place], [place] [phone] Anabel Martinez MD 230 [place], [place] [phone] Dorsalgia Social History Tobacco Use Types Packs/Day [...] Description 07/21/2025 10:30 AM EDT Clinical Support [address] [address] Izzy Hull, YANIQUE 505 [place] [address] 08/01/2025 9:45 AM EDT Office Visit [facility] [address] [place] [address] Estela Leos MD [address] [place] [address] documented as of this encounter Visit Diagnoses Diagnosis Dorsalgia Pain in thoracic spine documented in this encounter Additional Health Concerns Assessment Noted Time PHQ-9 Depression Total Score: 7 07/09/20 23 1:56 PM EDT documented as of this encounter Care Teams Component Lab Tech Relationship Specialty Start Date End Date Estela Leos MD [address] [place] [address] PCP - General Internal Medicine 05/18/23 documented as of this encounter
--- OUTSIDE RECORDS SUMMARY | 2025-07-18 12:35 | XMS_ITS | Encounter Summary ---
Author Organization [employer] Address 75 [facility] 7 [place] [address] Care Team Providers Care Coater Helper Name Role Phone Estela Leos MD Primary Care Pro vider Reason for Visit * Reason Comments Med Refill Encounter Details Date Type Department Care Team (Late st Contact Info) Description 06/26/2025 Refill [facility] 230 [place] [address] Estela Leos MD 230 [place], [place] [phone] Social History Tobacco Use Types Packs/Day Years [...] Answer Date Recorded Patient Health Questionnaire-9 Score 0 06/01/2025 Patient Health Questionnaire-9 Score 0 06/01/2025 Last PHQ-9: Questionnaire Data Not on file 0 06/01/2025 Housing Stability Answer Date Recorded What is your housing situation today? I have darrel bhardwaj 06/01/[address] you li ve. Do you have problems with any of the following? None of the above 06/01/2025 Food Insecurity Answer Date Recorded Within the [...] Answer Date Recorded Patient Health Questionnaire-2 Score 0 06/01/2025 Internet Access Answer Date Recorded Internet Access [...] Description 07/21/2025 10:30 AM EDT Clinical Support [facility] [address] [place] [address] Izzy Hull, YANIQUE 505 [place] [address] 08/01/2025 9:45 AM EDT Office Visit [facility] [address] [place] [address] Estela Leos MD [address] [place] [address] documented as of this encounter Visit Diagnoses Not on filedocumented in this encounter Additional Health Concerns Assessment Noted Time PHQ-9 Depression Total Score: 0 06/01/20 25 9:43 AM EDT documented as of this encounter Care Teams Coater Helper Relationship Specialty Start Date End Date Estela Leos MD [address] [place] [address] PCP - General Internal Medicine 05/18/23 documented as of this encounter
--- OUTSIDE RECORDS SUMMARY | 2025-07-18 12:35 | XMS_ITS | Encounter Summary ---
Author Organization [employer] Address 75 [facility] 7t [place] [address] Care Team Providers Care Temper Mill Operator Name Role Phone Estela Leos MD Primary Care Pro vider Reason for Visit * Reason Comments Med Refill Encounter Details Date Type Department Care Team (Late st Contact Info) Description 01/06/2025 Refill [facility] [address] [place] [address] Abmer Devi, ANP 230 [place] [address] Dorsalgia Social History Tobacco Use Types Packs/Day [...] with others, in a hotel, in a penitentiary, living outside on the street, on a [...] Description 07/21/2025 10:30 AM EDT Clinical Support [facility] [address] [place] [address] Izzy Hull, RN 505 [place] [address] 08/01/2025 9:45 AM EDT Office Visit [facility] [address] [place] [address] Estela Leos MD [address] [place] [address] documented as of this encounter Visit Diagnoses Diagnosis Dorsalgia Pain in thoracic spine documented in this encounter Additional Health Concerns Assessment Noted Time PHQ-9 Depression Total Score: 7 07/09/20 23 1:56 PM EDT documented as of this encounter Care Teams Temper Mill Operator Relationship Specialty Start Date End Date Estela Leos MD [address] [place] [address] PCP - General Internal Medicine 05/18/23 documented as of this encounter
--- OUTSIDE RECORDS SUMMARY | 2025-07-18 12:35 | XMS_ITS | Encounter Summary ---
Author Organization [employer] Address 75 [facility] 7 [place] [address] Care Team Providers Care Collector Name Role Phone Estela Leos MD Primary Care Pro vider Reason for Visit * Reason Comments Med Refill Encounter Details Date Type Department Care Team (Late st Contact Info) Description 02/02/2024 Refill [facility] 230 [place] [address] Esteal Leos MD 230 [place], [place] [phone] Dorsalgia Social History Tobacco Use Types Packs/Day [...] Description 07/21/2025 10:30 AM EDT Clinical Support [facility] [address] [place] [address] Izzy Hull, YANIQUE 505 [place] [address] 08/01/2025 9:45 AM EDT Office Visit [facility] [address] [place] [address] Estela Leos MD [address] [place] [address] documented as of this encounter Visit Diagnoses Diagnosis Dorsalgia Pain in thoracic spine documented in this encounter Additional Health Concerns Assessment Noted Time PHQ-9 Depression Total Score: 7 07/09/20 23 1:56 PM EDT documented as of this encounter Care Teams Collector Relationship Specialty Start Date End Date Estela Leos MD [address] [place] [address] PCP - General Internal Medicine 05/18/23 documented as of this encounter
--- OUTSIDE RECORDS SUMMARY | 2025-07-18 12:35 | XMS_ITS | Encounter Summary ---
Author Organization [employer] Address 75 [facility] 7 [place] [address] Care Team Providers Care Manager Specialty Name Role Phone Estela Leos MD Primary Care Pro vider Reason for Visit * Reason Onset Date Comments Med Refill 06/28/2025 Encounter Details Date Type Department Care Team (Late st Contact Info) Description 06/28/2025 Telephone [facility] 230 [place] [address] Estela Leos MD 230 [place], [place] [phone] Med Refill Social History Tobacco Use Types Packs/Day Years [...] AM EDT documented as of this encounter Miscellaneous Notes * Telephone Encounter - Meseret Caro - 06/30/2025 11:53 AM EDT Tc from pt requesting status on medication refill. Pt requested a message to be sent before it's the weekend. * Telephone Encounter - Virgie Rosales - 06/28/2025 9:53 AM EDT TC from pt requesting medication refill. Medications needing refill : - traMADol (Ultram) 50 MG tablet To be sent to: - [facility] - [place] - [id number] - [place] - [address] documented in this encounter Plan of Treatment Upcoming Encounters Date Type Department Care Team (Late st Contact Info) Description 07/21/2025 10:30 AM EDT Clinical Support [facility] 230 [place] [address] Izzy Hull RN 505 [place] [address] 08/01/2025 9:45 AM EDT Office Visit [facility] 230 [place] [address] Estela Leos MD 230 [place], [place] [phone] documented as of this encounter Visit Diagnoses Not on filedocumented in this encounter Additional Health Concerns Assessment Noted Time PHQ-9 Depression Total Score: 0 06/01/20 25 9:43 AM EDT documented as of this encounter Care Teams Manager Specialty Relationship Specialty Start Date End Date Estela Leos MD 230 [place], [place] [phone] PCP - General Internal Medicine 05/18/23 documented as of this encounter
--- OUTSIDE RECORDS SUMMARY | 2025-07-18 12:35 | XMS_ITS | Encounter Summary ---
Author Organization [employer] Address [address] [place] [address] [place] [address] Care Team Providers Care Manager Of Software Name Role Phone Estela Leos MD Primary Care Pro vider Reason for Visit * Reason Onset Date Comments Med Refill 12/23/2024 Encounter Details Date Type Department Care Team (Late st Contact Info) Description 12/23/2024 Telephone [facility] 230 [place], [place] [phone] Estela Leos MD 230 [place], [place] [phone] Med Refill Social History Tobacco Use Types [...] with others, in a hotel, in a correction, living outside on the street, on a [...] encounter Miscellaneous Notes * Telephone Encounter - Harry Philippe - 12/23/2024 8:20 AM EST TC from pt requesting medication refill. Medications needing refill : oxyCODONE-acetaminophen (Percocet) 5-325 MG tablet To be sent to: [facility] - [place] - [id number] - [place] - [address] documented in this encounter Plan of Treatment Upcoming Encounters Date Type Department Care Team (Late st Contact Info) Description 07/21/2025 10:30 AM EDT Clinical Support [facility] [address] [place] [address] Izzy Hull RN 505 [place] [address] 08/01/2025 9:45 AM EDT Office Visit [facility] [address] [place] [address] Estela Leos MD 230 [place] [address] documented as of this encounter Visit Diagnoses Not on filedocumented in this encounter Additional Health Concerns Assessment Noted Time PHQ-9 Depression Total Score: 7 07/09/20 1:56 PM EDT documented as of this encounter Care Teams Manager Of Software Relationship Specialty Start Date End Date Estela Leos MD [address] [place] [address] PCP - General Internal Medicine 05/18/23 documented as of this encounter
--- OUTSIDE RECORDS SUMMARY | 2025-07-18 12:35 | XMS_ITS | Encounter Summary ---
Author Organization [employer] Address 75 [facility] 7 [place] [address] Care Team Providers Care Nursery Supervisor Name Role Phone Estela Leos MD Primary Care Pro vider Reason for Visit * Reason Onset Date Comments Reschedule 03/10/2024 Encounter Details Date Type Department Care Team (Late st Contact Info) Description 03/10/2024 Telephone [facility] 230 [place] [address] Estela Leos MD 230 [place] [address] Reschedule Social History Tobacco Use Types Packs/Day Years [...] encounter Miscellaneous Notes * Telephone Encounter - Gladis Winchester - 03/10/2024 11:25 AM EDT Tc from pt requesting to reschedule 03/10 [employer]IOR [employer] CONSULTANT appointment. Please contact pt at [phone] documented in this encounter Plan of Treatment Upcoming Encounters Date Type Department Care Team (Late st Contact Info) Description 07/21/2025 10:30 AM EDT Clinical Support [facility] [address] [place] [address] Izzy Hull RN 505 [place] [address] 08/01/2025 9:45 AM EDT Office Visit [facility] [address] [place] [address] Estela Leso MD [address] [place] [address] documented as of this encounter Visit Diagnoses Not on filedocumented in this encounter Additional Health Concerns Assessment Noted Time PHQ-9 Depression Total Score: 7 07/09/20 23 1:56 PM EDT documented as of this encounter Care Teams Nursery Supervisor Relationship Specialty Start Date End Date Estela Leos MD [address] [place] [address] PCP - General Internal Medicine 05/18/23 documented as of this encounter
--- OUTSIDE RECORDS SUMMARY | 2025-07-18 12:35 | XMS_ITS | Encounter Summary ---
Author Organization [employer] Address 75 [facility] 7 [place] [address] Care Team Providers Care Mantel Craftsman Name Role Phone Estela Leos MD Primary Care Pro vider Reason for Visit * Reason Onset Date Comments Med Refill 09/17/2023 Encounter Details Date Type Department Care Team (Late st Contact Info) Description 09/17/2023 Telephone [facility] 230 [place], [place] [phone] Estela Leos MD 230 [place], [place] [phone] Med Refill Social History Tobacco Use Types [...] encounter Miscellaneous Notes * Telephone Encounter - Rimma Huynh - 09/17/2023 10:03 AM EDT Tc from pt requesting med refill on; oxyCODONE-acetaminophen (Percocet) 5-325 MG tablet documented in this encounter Plan of Treatment Upcoming Encounters Date Type Department Care Team (Late st Contact Info) Description 07/21/2025 10:30 AM EDT Clinical Support [facility] [address] [place] [address] Izzy Hull RN 505 [place] [address] 08/01/2025 9:45 AM EDT Office Visit [facility] [address] [place] [address] Estela Leos MD [address] [place] [address] documented as of this encounter Visit Diagnoses Not on filedocumented in this encounter Additional Health Concerns Assessment Noted Time PHQ-9 Depression Total Score: 7 07/09/20 23 1:56 PM EDT documented as of this encounter Care Teams Mantel Craftsman Relationship Specialty Start Date End Date Estela Leos MD [address] [place] [address] PCP - General Internal Medicine 7/3/23 documented as of this encounter
--- OUTSIDE RECORDS SUMMARY | 2025-07-18 12:35 | XMS_ITS | Encounter Summary ---
Author Organization [employer] Address 75 [facility] 7 [place] [address] Care Team Providers Care Electrical Line Worker Name Role Phone Estela Leos MD Primary Care Pro vider Reason for Visit * Reason Comments Med Refill Encounter Details Date Type Department Care Team (Late st Contact Info) Description 12/24/2023 Refill [facility] 230 [place] [address] Estela Leos MD 230 [place], [place] [phone] Social History Tobacco Use Types Packs/Day Years [...] Description 07/21/2025 10:30 AM EDT Clinical Support [address] [address] Izzy Hull, RN 505 [place] [address] 08/01/2025 9:45 AM EDT Office Visit [facility] [address] [place] [address] Estela Leos MD [address] [place] [address] documented as of this encounter Visit Diagnoses Not on filedocumented in this encounter Additional Health Concerns Assessment Noted Time PHQ-9 Depression Total Score: 7 07/09/20 23 1:56 PM EDT documented as of this encounter Care Teams Electrical Line Worker Relationship Specialty Start Date End Date Estela Leos MD [address] [place] [address] PCP - General Internal Medicine 05/18/23 documented as of this encounter
--- OUTSIDE RECORDS SUMMARY | 2025-07-18 12:35 | XMS_ITS | Encounter Summary ---
Author Organization [employer] Address 75 [facility] 7 [place] [address] Care Team Providers Care Educational Psychologist Name Role Phone Estela Leos MD Primary Care Pro vider Encounter Details Date Type Department Care Team (Late st Contact Info) Description 11/14/2024 Telephone [facility] 230 [place], [place] [phone] Estela Leos MD 230 [place] [address] Social History Tobacco Use Types Packs/Day Years [...] with others, in a hotel, in a detention, living outside on the street, on a [...] 07/21/2025 10:30 AM EDT Clinical Support [facility] [address] [place] [address] Izzy Hull RN 505 [place] [address] 08/01/2025 9:45 AM EDT Office Visit [facility] [address] [place] [address] Estlea Leos MD [address] [place] [address] documented as of this encounter Visit Diagnoses Not on filedocumented in this encounter Additional Health Concerns Assessment Noted Time PHQ-9 Depression Total Score: 7 07/09/20 23 1:56 PM EDT documented as of this encounter Care Teams Educational Psychologist Relationship Specialty Start Date End Date Estela Leos MD [address] [place] [address] PCP - General Internal Medicine 05/18/23 documented as of this encounter
--- OUTSIDE RECORDS SUMMARY | 2025-07-18 12:35 | XMS_ITS | Encounter Summary ---
Author Organization [email or web address] Address [address] [place] [address] [place] [address] Care Team Providers Care Behavioral Health Case Manager Name Role Phone Estela Leos MD Primary Care Pro vider Reason for Visit * Reason Onset Date Comments Med Refill 01/16/2025 Encounter Details Date Type Department Care Team (Late st Contact Info) Description 01/16/2025 Telephone [facility] 230 [place], [place] [phone] Estela Leos MD 230 [place], [place] [phone] Med Refill Social History Tobacco Use Types [...] * Telephone Encounter - Harry Philippe - 01/16/2025 8:35 AM EST TC from pt requesting medication refill. Medications needing refill : oxyCODONE-acetaminophen (Percocet) 5-325 MG tablet To be sent to: [facility] - [place], [place] - [id number] - [place] - [address] documented in this encounter Plan of Treatment Upcoming Encounters Date Type Department Care Team (Late st Contact Info) Description 07/21/2025 10:30 AM EDT Clinical Support [facility] [address] [place] [address] Izzy Hull RN 505 [place] [address] 08/01/2025 9:45 AM EDT Office Visit [facility] [address] [place] [address] Estela Leos MD 230 [place] [address] documented as of this encounter Visit Diagnoses Not on filedocumented in this encounter Additional Health Concerns Assessment Noted Time PHQ-9 Depression Total Score: 7 07/09/20 1:56 PM EDT documented as of this encounter Care Teams Behavioral Health Case Manager Relationship Specialty Start Date End Date Estela Leos MD [address] [place] [address] PCP - General Internal Medicine 05/18/23 documented as of this encounter
--- OUTSIDE RECORDS SUMMARY | 2025-07-18 12:35 | XMS_ITS | Encounter Summary ---
Author Organization [employer] Address 75 [facility] 7t [place] [address] Care Team Providers Care Jewelry Internship Name Role Phone Estela Leos MD Primary Care Pro vider Reason for Visit * Reason Comments Med Refill Encounter Details Date Type Department Care Team (Late st Contact Info) Description 10/19/2023 Refill [facility] [address] [place] [address] Estela Leos MD 230 [place] [address] Dorsalgia Social History Tobacco Use Types Packs/Day [...] Description 07/21/2025 10:30 AM EDT Clinical Support [facility] [address] [place] [address] Izzy Hull RN 505 [place] [address] 08/01/2025 9:45 AM EDT Office Visit [facility] [address] [place] [address] Estela Leos MD [address] [place] [address] documented as of this encounter Visit Diagnoses Diagnosis Dorsalgia Pain in thoracic spine documented in this encounter Additional Health Concerns Assessment Noted Time PHQ-9 Depression Total Score: 7 07/09/20 23 1:56 PM EDT documented as of this encounter Care Teams Jewelry Internship Relationship Specialty Start Date End Date Estela Leos MD [address] [place] [address] PCP - General Internal Medicine 05/18/23 documented as of this encounter
--- OUTSIDE RECORDS SUMMARY | 2025-07-18 12:35 | XMS_ITS | Clinical Summary ---
Author Organization [employer] Address 75 [facility] 7 [place] [address] Care Team Providers Care Embossed Or Impressed Lettering Painter Name Role Phone Estela Leos MD Primary Care Pro vider Allergies No known active allergies Medications * This document contains information received from the source organization and may not represent a complete record from that organization. ferrous gluconate (Fergon) 324 (38 Fe) MG tablet Take 1 tablet (324 mg) by mouth with breakfast. 90 tablet 2025 Active Ascorbic Acid (vitamin C) 250 MG tablet Take 1 tablet (250 mg) by mouth Once per day. 90 tablet 025 2025 Active allopurinol (Zyloprim) 100 MG tablet Take 1 tablet (100 mg) by mouth Once per day. 90 tablet Active psyllium (Metamucil Smooth Texture) 58.6 % powder Take 5.12 g (3 g of fiber) by mouth 2 times daily. 283 g 2 2025 Active albuterol 108 (90 Base) MCG/ACT inhaler Inhale 2 puffs every 6 (six) hours if needed for wheezing. 18 g 2 2025 Active atorvastatin (Lipitor) 40 MG tablet Take 1 tablet (40 mg) by mouth Once per day. 90 tablet Active Eliquis 5 MG tablet Take 1 tablet (5 mg) by mouth 2 times daily. 60 tablet 2 Active Umeclidinium [place] (Incruse Ellipta) 62.5 MCG/ACT aerosol powder Inhale 1 Act (62.5 mcg) Once per day. INHALE 1 PUFF BY MOUTH INTO THE lungs ONCE DAILY 30 each 2 Active Diclofenac Sodium 1 % gelIndications:Ch ronic pain of both knees,Osteoarthri tis of both knees, unspecified osteoarthritis type Apply 1 Application topically if needed each day (daily prn). 50 g Active lidocaine-priloca ine (Emla) 2.5-2.5 % creamIndications: Chronic pain of both knees,Osteoarthri tis of both knees, unspecified osteoarthritis type Apply topically if needed each day for mild pain. 30 g Active naloxone (Narcan) 4 mg/0.1 mL nasal sprayIndications: Chronic pain of both knees,Osteoarthri tis of both knees, unspecified osteoarthritis type Administer 1 spray (4 mg) into affected nostril(s) if needed for opioid reversal. May repeat every 2-3 minutes if needed, alternating nostrils, until medical assistance becomes available. 2 each 025 2025 Active traMADol (Ultram) 50 MG tabletIndications :Chronic pain of both knees,Osteoarthri tis of both knees, unspecified osteoarthritis type Take 1 tablet (50 mg) by mouth every 12 (twelve) hours if needed for severe pain for up to 28 days. 28 tablet 025 2024 Active traMADol (Ultram) 50 MG tabletIndications :Chronic pain of both knees,Osteoarthri tis of both knees, unspecified osteoarthritis type Take 1 tablet (50 mg) by mouth every 12 (twelve) hours if needed for severe pain for up to 28 days. 28 tablet 025 2024 Discontinued(R eorder (will not trigger notification to Pharmacy)) Active Problems Problem Noted Date Diagnosed Date Chronic pain of both knees 06/02/2025 Immobility 06/02/2025 Anemia 06/02/2025 Wheelchair dependence 06/01/2025 Housing problems 06/01/2025 Prediabetes 09/26/2023 Dyspnea on exertion 08/26/2023 Pulmonary embolism 08/26/2023 Hyperlipidemia 08/26/2023 Pterygium 08/26/2023 Health care maintenance 07/07/2023 Obesity 07/07/2023 Tobacco smoker within last 12 months 07/07/2023 Depression, unspecified 07/07/2023 Assessment & Plan (07/09/2023 4:49 PM EDT): Patient with unspecified depressive disorder. Symptoms reported (loss interest in doing activities, depressed mood, insomnia and decrease in appetite) and occur several days for the last two months in the context of his housing situation and medical concerns (chronic pain in lower back and right knee). Depressive episodes can be consequence of his medical condition and chronic pain. Criteria met for unspecified depressive disorder due to presenting short duration of depressive episodes. Patient will benefit from receiving OP individual therapy and a referral for case management to assist with housing needs. At this time Erick Gannon meets criteria for Visit Diagnoses: Problem List Items Addressed This Visit Other Depression, unspecified Patient ready to address current needs Yes Strengths include strong interpersonal relationships and community. PLAN: 1. Follow up with [facility]: Not recommended for follow-up 2. Patient goal is to feel less depressed and healthier. 3. Behavioral Recommendations a. Referral for OP individual therapy b. Referral for case management (housing) c. Incorporate mindfulness techniques into daily routine. Chronic low back pain 10/23/2022 Gout 11/21/2021 Encounters Date Type Department Care Team Description 06/30/2025 Orders Only [facility] MEDICINE [address] [place] [address] Estela Leos MD Chronic pain of both knees; Osteoarthritis of both knees, unspecified osteoarthritis type 06/28/2025 Refill [facility] & PEDS [address] [place] [address] Izzy Hull RN Chronic pain of both knees; Osteoarthritis of both knees, unspecified osteoarthritis type 06/28/2025 Telephone [facility] MEDICINE [address] [place] [address] Estela Leos MD Med Refill 06/26/2025 Refill [facility] MEDICINE [address] [place] [address] Estela Leos MD 06/02/2025 Travel 06/02/2025 Telephone [facility] MED & PEDS [address] [place] [address] Izzy Hull RN 06/01/2025 9:30 AM EDT Office Visit [facility] [address] [place] [address] Estela Leos MD Diabetes due to undrl condition w oth diabetic neuro comp ([facility]) (Primary Dx); Housing instability; Wheelchair dependence; Housing problems; Chronic pain of both knees; Osteoarthritis of both knees, unspecified osteoarthritis type; Anemia, unspecified type; Colon cancer screening; Loud snoring; Class 1 obesity due to excess calories without serious comorbidity with body mass index (BMI) of 32.0 to 32.9 in adult; Hx of deep venous thrombosis; Dietary counseling; Exercise counseling; Acute saddle pulmonary embolism, unspecified whether acute cor pulmonale present ([facility]); Pterygium, unspecified laterality; Health care maintenance; Tobacco smoker within last 12 months; Immobility 06/01/[address] [address] Estela Leos MD Durable Medical Equipment 06/01/2025 Travel 05/31/[address] [address] Estela Leos MD Chart Prep from Last 3 Months Immunizations Immunization Administration Dates Next Due Influenza injectable quadrivalent preservative f ree 09/23/2023 Pneumococcal Conjugate PCV 20 09/23/2023 Social History Tobacco Use Types Packs/Day Years Used Date Smoking Tobacco: Every Day Cigarettes 0.3 22 Passive Smoke Exposure: Current Tobacco Cessation:Ready to Q uit: Not Asked; Counseling Given: Not Answered Comments:Started at 21 y ,stopped for aprox 15 years and resumed for [...] Orientation Straight 09/15/2022 10 :35 AM EDT Last Filed Vital Signs Vital Sign Reading Time Taken Comments Blood Pressure 138/70 06/01/2025 9:41 AM EDT Pulse 88 06/01/2025 9:41 AM EDT Temperature 36.4 C (97.5 F) 06/01/2025 9:41 AM EDT Respiratory Rate 20 06/01/2025 9:41 AM EDT Oxygen Saturation 99% 06/01/2025 9:41 AM EDT Inhaled Oxygen Concentration - - Weight 105 kg (232 lb) 06/01/2025 9:41 AM EDT Height 175.3 cm (5' 9 ) 06/01/2025 9:41 AM EDT Body Mass Index 34.26 06/01/2025 9:41 AM EDT Plan of Treatment Upcoming Encounters Date Type Department Care Team (Late st Contact Info) Description 07/21/2025 10:30 AM EDT Clinical Support [facility] MED[facility] [address] [place] [address] Izzy Hull, YANIQUE [address] [place], [place] [phone] 08/01/2025 9:45 AM EDT Office Visit [facility] MED[facility]INE [address] [place], [place] [phone] Estela Leos MD [address] [place], [place] [phone] Health Maintenance Due Date Last Done Comments CT Colonography 1967 Colonoscopy 1967 Colorectal Cancer Screening 1967 FIT DNA/Cologuard 1967 FIT 1967 FOBT 1967 Sigmoidoscopy 1967 Diabetes: Foot Exam 1977 Eye Exam 1977 DTaP/Tdap/Td Vaccines (1 - Tdap) 1986 Hepatitis B Vaccines (1 of 3 - 19+ 3-dose series) 1986 Zoster Vaccines (1 of 2) 2017 Diabetes: Urine Protein Screening 03/13/2023 03/13/2022 Lipid Panel 03/13/2023 03/13/2022 Diabetes: Hemoglobin A1C 03/23/2024 023, 03/13/2022 COVID-19 Vaccine (1 - 2023-2 5 season) 2025 Influenza Vaccine (#1) 2025 09/23/2023 Alcohol/Substance Use Screening 06/01/2026 06/01/2025 Depression Screening 06/01/2026 06/01/2025, 06/01/2025 Disability Screening 06/01/2026 06/01/2025 SDOH Screening 06/01/2026 06/01/2025 Tobacco Screening 06/01/2026 06/01/2025 RSV Patients and Patients Aged 60 years or older (1 - 1-dose 75+ series) 2042 HIV Screening Completed 03/13/2022 Hepatitis C Screening Completed 03/13/2022 Pneumococcal Vaccine: 50+ Years Completed 09/23/2023 HIB Vaccines Aged Out No longer eligi ble based on patient's age to complete this topic HPV Vaccines Aged Out No longer eligi ble based on patient's age to complete this topic Hepatitis A Vaccines Aged Out No long er eligible based on patient's age to complete this topic IPV Vaccines Aged Out No longer eligi ble based on patient's age to complete this topic Meningococcal B Vaccine Aged Out No l onger eligible based on patient's age to complete this topic Meningococcal Vaccine Aged Out No charlotte domingo eligible based on patient's age to complete this topic RSV under 20 months Aged Out No longe r eligible based on patient's age to complete this topic Rotavirus Vaccines Aged Out No longer eligible based on patient's age to complete this topic Procedures Procedure Name Priority Date/Time Associated Diagnosis Comments POCT GLYCATED HEMOGLOBIN, TOTAL Routine 09/23/2023 2:36 PM EST Diabetes due to undrl condition w oth diabetic neuro comp (CMS/HCC) ZZZ HISTORICAL HEPATITIS C AB W/REFL TO HCV RNA, QN, PCR Routine 03/13/2022 10:31 AM EDT HIV 1/2 ANTIGEN/ANTIBODY, FOURTH GENERATION W/RFL Routine 03/13/2022 10:31 AM EDT ALBUMIN, RANDOM URINE W/CREATININE Routine 03/13/2022 10:31 AM EDT LIPID PANEL, STANDARD Routine 03/13/2022 10:31 AM EDT from Last 3 Months or Most Recently Relevant to Health Maintenance Results * POCT A1C (09/23/2023 2:36 PM EST) Hemoglobin A1C 5.9 4.0 - 6.0 % QC Media Lot # [id number] Lot# Expiration Date Blood 09/23/2023 2:36 PM EST Estela Barber MD POINT OF CARE ALPHONSE T ENTER/EDIT ORDERABLES Final Result * HEPATITIS C AB W/REFL TO HCV RNA, QN, PCR (03/13/2022 10:31 AM EDT) HEPATITIS C ANTIBODY NON-REACT DAVON NON-REACT DAVON [facility] INDEX 0.01 <1.00 [facility] Comment: HCV antibody was non-reactive. There is no laboratory evidence of HCV infection. In most cases, no further action is required. However, if recent HCV exposure is suspected, a test for HCV RNA (test code 12114) is suggested. For additional information please refer to http://education.A-STAR/faq/CHJ83t5 (This link is being provided for informational/ educational purposes only.) 03/13/2022 10:3 1 AM EDT Daniela Clara PARKING ENFORCEMENT SPECIALIST HISTORICAL/NON ORDERABLE LABS Final Result Performing Organization Address [facility] Number [facility] [address] [place] [address], * ALBUMIN, RANDOM URINE W/CREATININE (03/13/2022 10:31 AM EDT) Microalbumin Urine 0.8 See Note: mg/dL [facility] Comment: Reference Range: Reference Range Not established Microalb/Creat Ratio 6 <30 mcg/mg creat [facility] Comment: The ADA defines abnormalities in albumin excretion as follows: Albuminuria Category Result (mcg/mg creatinine) Normal to Mildly increased <30 Moderately increased 30-299 Severely increased > OR = 300 The ADA recommends that at least two of three specimens collected within a 3-6 month period be abnormal before considering a patient to be within a diagnostic category. Creatinine, Urine 134 20 - 320 mg/dL [facility] 03/13/2022 10:3 1 AM EDT Daniela Clara PARKING ENFORCEMENT SPECIALIST LAB URINE ORDERABLES Final Res ult Performing Organization Address [facility] Phone Number [facility] [place] [address], * HIV 1/2 ANTIGEN/ANTIBODY,FOURTH GENERATION W/RFL (03/13/2022 10:31 AM EDT) HIV-1/2 ANTIGEN AND ANTIBODIES, 4TH GENERATION W/ REFLEX NON-REACT DAVON NON-REACT DAVON [facility] Comment: HIV-1 antigen and HIV-1/HIV-2 antibodies were not detected. There is no laboratory evidence of HIV infection. PLEASE NOTE: This information has been disclosed to you from records whose confidentiality may be protected by state law. If your state requires such protection, then the state law prohibits you from making any further disclosure of the information without the specific written consent of the person to whom it pertains, or as otherwise permitted by law. A general authorization for the release of medical or other information is NOT sufficient for this purpose. For additional information please refer to http://SmartKickz.Poetica.SoLatina/faq/BME748 (This link is being provided for informational/ educational purposes only.) The performance of this assay has not been clinically validated in patients less than 2 years old. 03/13/2022 10:3 1 AM EDT us Daniela Elizabeth [facility] LAB BLOOD ORDERABLES Final Res ult [facility] [address] * (ABNORMAL) LIPID PANEL, STANDARD (03/13/2022 10:31 AM EDT) Chol/HDLC Ratio 8.6(H) <5.0 (calc) [facility] Cholesterol, Total 216(H) <200 mg/dL [facility] HDL Cholesterol 25(L) > OR = 40 mg/dL [facility] LDL Cholesterol 139(H) mg/dL (calc) [facility] Comment: Reference range: <100 Desirable range <100 mg/dL for primary prevention; <70 mg/dL for patients with CHD or diabetic patients with > or = 2 CHD risk factors. LDL-C is now calculated using the Enio-Kristen calculation, which is a validated novel method providing better accuracy than the Friedewald equation in the estimation of LDL-C. Enio SPRINGER et al. SHAAN. 2013;310(19): 7913-7349 (http://education.EndoChoice.SoLatina/faq/HCS565) Non-HDL Cholesterol 191(H) <130 mg/dL (calc) [facility] Comment: For patients with diabetes plus 1 major ASCVD risk factor, treating to a non-HDL-C goal of <100 mg/dL (LDL-C of <70 mg/dL) is considered a therapeutic option. Triglycerides 336(H) <150 mg/dL [facility] Comment: If a non-fasting specimen was collected, consider repeat triglyceride testing on a fasting specimen if clinically indicated. Mary Kate et al. J. of Clin. Lipidol. 2015;9:129-169. 03/13/2022 10:3 1 AM EDT us Daniela Elizabeth PARKING ENFORCEMENT SPECIALIST LAB BLOOD ORDERABLES Final Res ult [facility] [address] from Last 3 Months or Most Recently Relevant to Health Maintenance Insurance [facility] < 67 [place] [id number] Care Teams Embossed Or Impressed Lettering Painter Relationship Specialty Start Date End Date Estela Leos MD [address] [place] [phone] PCP - General Internal Medicine 05/18/23
--- OUTSIDE RECORDS SUMMARY | 2025-07-18 12:35 | XMS_ITS | Encounter Summary ---
Author Organization [employer] Address [address] [facility] 7 [place] [address] Care Team Providers Care Golf Cart Repairer Name Role Phone Estela Leos MD Primary Care Pro vider Reason for Visit * Reason Onset Date Comments Nurse Triage 04/20/2024 Encounter Details Date Type Department Care Team (Late st Contact Info) Description 04/20/2024 Telephone [facility] MEDICINE [address] [place], [place] [phone] Estela Leos MD [address] [place], [place] [phone] Nurse Triage Social History Tobacco Use Types Packs/Day Years [...] encounter Miscellaneous Notes * Telephone Encounter - Renetta Gaines RN - 04/20/2024 12:08 PM EDT Triage call Pt reports constipation. Last BM 04/18/24. Pt reports some abdominal pain which occurs when trying to have BM then goes away. Home care advised, Pt reports drinking adequate liquids. Pt is encouraged to eat fresh fruit, vegetables and high fiber foods. Pt is encouraged to drink prune juice in the mornings and to try milk of magnesia this evening before bed. Pt will call back if no results. Pt agreed with home care and disposition. Protocol Used: Constipation (Adult) Protocol-Based Disposition: Home Care Positive Triage Question: * Mild constipation * All higher-acuity triage questions were negative Care Advice Discussed: * Reassurance and Education - Constipation * General Constipation Instructions * High Fiber Diet * Drink Adequate Liquids * Reasons To Call Back - Constipation lasts more than 1 week after using Care Advice - Abdomen swelling, vomiting or fever occur - Constant or increasing abdomen pain - You think you need to be seen - You become worse * Telephone Encounter - Norma Mir - 04/20/2024 11:51 AM EDT Symptom: Constipation Outcome: Schedule an appointment to be seen within 24 hours Reason: Caller denied all higher acuity questions The caller accepted this outcome documented in this encounter Plan of Treatment Upcoming Encounters Date Type Department Care Team (Late st Contact Info) Description 07/21/2025 10:30 AM EDT Clinical Support [facility] MEDICINE [address] [place] [address] Izzy Hull RN [address] [place] [address] 08/01/2025 9:45 AM EDT Office Visit [facility] MEDICINE [address] [place] [address] Estela Leos MD [address] [place] [address] documented as of this encounter Visit Diagnoses Not on filedocumented in this encounter Additional Health Concerns Assessment Noted Time PHQ-9 Depression Total Score: 7 07/09/20 23 1:56 PM EDT documented as of this encounter Care Teams Golf Cart Repairer Relationship Specialty Start Date End Date Estela Leos MD [address] [place] [phone] PCP - General Internal Medicine 05/18/23 documented as of this encounter
--- OUTSIDE RECORDS SUMMARY | 2025-07-18 12:35 | XMS_ITS | Encounter Summary ---
Author Organization [employer] Address [address] [facility] 7 [place] [address] Care Team Providers Care Adolescent Medicine Specialist Name Role Phone Estela Leos MD Primary Care Pro vider Reason for Visit * Reason Onset Date Comments Med Refill 11/11/2023 Encounter Details Date Type Department Care Team (Late st Contact Info) Description 11/11/2023 Telephone [facility] MEDICINE [address] [place], [place] [phone] Estela Leos MD [address] [place], [place] [phone] Med Refill Social History Tobacco Use Types [...] * Telephone Encounter - Gladis Winchester - 11/11/2023 12:48 PM EST TC from pt requesting medication refill. Medications needing refill : oxyCODONE-acetaminophen (Percocet) 5-325 MG tablet To be sent to: [facility] [place] [place] - [phone] [place] - [address] documented in this encounter Plan of Treatment Upcoming Encounters Date Type Department Care Team (Late st Contact Info) Description 07/21/2025 10:30 AM EDT Clinical Support [facility] MEDICINE [address] [place] [phone] Izzy Hull RN [address] [place] [address] 08/01/2025 9:45 AM EDT Office Visit [facility] MEDICINE [address] [place] [address] Estela Leos MD [address] [place] [phone] documented as of this encounter Visit Diagnoses Not on filedocumented in this encounter Additional Health Concerns Assessment Noted Time PHQ-9 Depression Total Score: 7 07/09/20 23 1:56 PM EDT documented as of this encounter Care Teams Adolescent Medicine Specialist Relationship Specialty Start Date End Date Estela Leos MD [address] [place] [phone] PCP - General Internal Medicine 05/18/23 documented as of this encounter
--- OUTSIDE RECORDS SUMMARY | 2025-07-18 12:35 | XMS_ITS | Encounter Summary ---
Author Organization [employer] Address 75 [facility] 7 [place] [address] Care Team Providers Care Sheet Metal Worker Maintenance Name Role Phone Estela Leos MD Primary Care Pro vider Reason for Visit * Reason Comments Med Refill Encounter Details Date Type Department Care Team (Late st Contact Info) Description 02/06/2025 Refill [facility] MEDICINE [address] [place], [place] [phone] Rosa Wray MD [address] [place], [place] [phone] Muscle spasm Social History Tobacco Use Types Packs/Day Years [...] with others, in a hotel, in a care home, living outside on the street, on a [...] 07/21/2025 10:30 AM EDT Clinical Support [facility] MEDICINE [address] [place] [phone] Izzy Hull, YANIQUE [address] [place] [address] 08/01/2025 9:45 AM EDT Office Visit [facility] MEDICINE [address] [place] [address] Estela Leos MD [address] [place] [address] documented as of this encounter Visit Diagnoses Diagnosis Muscle spasm Spasm of muscle documented in this encounter Additional Health Concerns Assessment Noted Time PHQ-9 Depression Total Score: 7 07/09/20 23 1:56 PM EDT documented as of this encounter Care Teams Sheet Metal Worker Maintenance Relationship Specialty Start Date End Date Estela Leos MD [address] [place] [phone] PCP - General Internal Medicine 05/18/23 documented as of this encounter
--- OUTSIDE RECORDS SUMMARY | 2025-07-18 12:35 | XMS_ITS | Encounter Summary ---
Author Organization [email or web address] Address [address] [facility] 7 [place] [address] Care Team Providers Care Production Expert Name Role Phone Estela Leos MD Primary Care Pro vider Reason for Visit * Reason Onset Date Comments Med Refill 02/15/2024 Encounter Details Date Type Department Care Team (Late st Contact Info) Description 02/15/2024 Telephone [facility] MEDICINE [address] [place], [place] [phone] Estela Leos MD [address] [place], [place] [phone] Med Refill Social History Tobacco Use Types [...] encounter Miscellaneous Notes * Telephone Encounter - Jessica Delgado LPN - 02/15/2024 10:16 AM EDT Medication pended to provider. * Telephone Encounter - Rimma Huynh - 02/15/2024 10:05 AM EDT TC from pt requesting medication refill. Medications needing refill : Eliquis 5 MG tablet To be sent to: [facility] - [place], [place] - [phone] - [place] - [address] documented in this encounter Plan of Treatment Upcoming Encounters Date Type Department Care Team (Late st Contact Info) Description 07/21/2025 10:30 AM EDT Clinical Support [facility] MEDICINE [address] [place] [phone] Izzy Hull RN [address] [place] [address] 08/01/2025 9:45 AM EDT Office Visit [facility] MEDICINE [address] [place] [phone] Estela Leos MD [address] [place] [address] documented as of this encounter Visit Diagnoses Not on filedocumented in this encounter Additional Health Concerns Assessment Noted Time PHQ-9 Depression Total Score: 7 07/09/20 23 1:56 PM EDT documented as of this encounter Care Teams Production Expert Relationship Specialty Start Date End Date Estela Leos MD [address] [place] [phone] PCP - General Internal Medicine 05/18/23 documented as of this encounter
--- OUTSIDE RECORDS SUMMARY | 2025-07-18 12:35 | XMS_ITS | Encounter Summary ---
Author Organization [employer] Address [address] [place] [address] [place] [address] Care Team Providers Care Jail Keeper Name Role Phone Estela Leos MD Primary Care Pro vider Reason for Visit * Reason Onset Date Comments Call Back Request 02/07/2025 Encounter Details Date Type Department Care Team ([facility] st Contact Info) Description 02/07/2025 Telephone [facility] 230 [place], [place] [phone] Estela Leos MD 230 [place], [place] [phone] Call Back Request Social History Tobacco Use Types Packs/Day Years [...] encounter Miscellaneous Notes * Telephone Encounter - Flory Ratliff - 02/07/2025 9:40 AM EDT Tc from pt requesting a call back regarding oxyCODONE-acetaminophen (Percocet) 5-325 MG tablet . Ptstates last week received less pills than usually. documented in this encounter Plan of Treatment Upcoming Encounters Date Type Department Care Team (Late st Contact Info) Description 07/21/2025 10:30 AM EDT Clinical Support [facility] [address] [place] [phone] Izzy Hull RN 505 [place] [address] 08/01/2025 9:45 AM EDT Office Visit [facility] [address] [place] [address] [phone] Estela Leos MD 230 [place] [address] documented as of this encounter Visit Diagnoses Not on filedocumented in this encounter Additional Health Concerns Assessment Noted Time PHQ-9 Depression Total Score: 7 07/09/20 1:56 PM EDT documented as of this encounter Care Teams Jail Keeper Relationship Specialty Start Date End Date Estela Leos MD [address] [place] [address] PCP - General Internal Medicine 05/18/23 documented as of this encounter
--- OUTSIDE RECORDS SUMMARY | 2025-07-18 12:35 | XMS_ITS | Encounter Summary ---
Author Organization [employer] Address 75 [facility] 7 [place] [address] Care Team Providers Care Orthotist Name Role Phone Estela Leos MD Primary Care Pro vider Reason for Visit * Reason Comments Med Refill Encounter Details Date Type Department Care Team (Late st Contact Info) Description 04/06/2025 Refill [facility] MED[facility]INE 230 [place], [place] [phone] Mary Palmer MD 230 [place], [place] [phone] Social History Tobacco Use Types Packs/Day Years [...] 07/21/2025 10:30 AM EDT Clinical Support [facility] [address] [place] [phone] Izzy Hull, YANIQUE 505 [place] [address] 08/01/2025 9:45 AM EDT Office Visit [facility] [address] [place] [phone] Estela Leos MD [address] [place] [address] documented as of this encounter Visit Diagnoses Not on filedocumented in this encounter Additional Health Concerns Assessment Noted Time PHQ-9 Depression Total Score: 7 07/09/20 23 1:56 PM EDT documented as of this encounter Care Teams Orthotist Relationship Specialty Start Date End Date Estela Leos MD [address] [place] [address] PCP - General Internal Medicine 05/18/23 documented as of this encounter
--- OUTSIDE RECORDS SUMMARY | 2025-07-18 12:35 | XMS_ITS | Encounter Summary ---
Author Organization [employer] Address 75 [facility] 7 [place] [address] Care Team Providers Care Radiologist Physician Name Role Phone Estela Leos MD Primary Care Pro vider Reason for Visit * Reason Onset Date Comments Med Refill 05/18/2024 Encounter Details Date Type Department Care Team (Late st Contact Info) Description 05/18/2024 Telephone [facility] 230 [place], [place] [phone] Estela Leos MD 230 [place], [place] [phone] Med Refill Social History Tobacco Use Types [...] encounter Miscellaneous Notes * Telephone Encounter - Norma Mir - 05/18/2024 10:03 AM EDT TC from pt requesting medication refill. Medications needing refill : oxyCODONE-acetaminophen (Percocet) 5-325 MG tablet To be sent to: [facility] - [place], [place] - [phone] - [place] - [address] documented in this encounter Plan of Treatment Upcoming Encounters Date Type Department Care Team (Late st Contact Info) Description 07/21/2025 10:30 AM EDT Clinical Support [facility] [address] [place] [address] Izzy Hull RN 505 [place] [address] 08/01/2025 9:45 AM EDT Office Visit [facility] [address] [place] [address] Estela Leos MD [address] [place] [address] documented as of this encounter Visit Diagnoses Not on filedocumented in this encounter Additional Health Concerns Assessment Noted Time PHQ-9 Depression Total Score: 7 07/09/20 23 1:56 PM EDT documented as of this encounter Care Teams Radiologist Physician Relationship Specialty Start Date End Date Estela Leos MD [address] [place] [address] PCP - General Internal Medicine 05/18/23 documented as of this encounter
--- OUTSIDE RECORDS SUMMARY | 2025-07-18 12:35 | XMS_ITS | Encounter Summary ---
Author Organization [employer] Address [address] [place] [address] [place] [address] Care Team Providers Care Utility Engineer Name Role Phone Estela Leos MD Primary Care Pro vider Reason for Visit * Reason Onset Date Comments Med Refill 01/23/2025 Encounter Details Date Type Department Care Team (Late st Contact Info) Description 01/23/2025 Telephone [facility] MED[facility]INE 230 [place], [place] [phone] Estela Leos MD 230 [place], [place] [phone] Med Refill Social History Tobacco Use Types [...] with others, in a hotel, in a jail, living outside on the street, on a [...] * Telephone Encounter - Flory Ratliff - 01/23/2025 8:06 AM EDT TC from pt requesting medication refill. Medications needing refill : oxyCODONE-acetaminophen (Percocet) 5-325 MG tablet To be sent to: [facility] - [place], [place] - [phone] - [place] - [address] documented in this encounter Plan of Treatment Upcoming Encounters Date Type Department Care Team (Late st Contact Info) Description 07/21/2025 10:30 AM EDT Clinical Support [facility] MED[facility]INE [address] [place] [address] Izzy Hull RN 505 [place] [address] 08/01/2025 9:45 AM EDT Office Visit [facility] [address] [place] [address] Estela Leos MD 230 [place], [place] [phone] documented as of this encounter Visit Diagnoses Not on filedocumented in this encounter Additional Health Concerns Assessment Noted Time PHQ-9 Depression Total Score: 7 07/09/20 23 1:56 PM EDT documented as of this encounter Care Teams Utility Engineer Relationship Specialty Start Date End Date Estela Leos MD [address] [place] [address] PCP - General Internal Medicine 05/18/23 documented as of this encounter
--- OUTSIDE RECORDS SUMMARY | 2025-07-18 12:36 | XMS_ITS | Encounter Summary ---
Author Organization [employer] Address [address] [place] [address] [place] [address] Care Team Providers Care Traffic Manager Name Role Phone Estela Leos MD Primary Care Pro vider Reason for Visit * Reason Onset Date Comments Med Refill 09/20/2024 Encounter Details Date Type Department Care Team (Late st Contact Info) Description 09/20/[address] [facility] MEDICINE 230 [place], [place] [phone] Estela Leos MD 230 [place], [place] [phone] Med Refill Social History Tobacco Use Types [...] * Telephone Encounter - Norma Mir - 09/20/2024 12:48 PM EST TC from pt requesting medication refill. Medications needing refill : oxyCODONE-acetaminophen (Percocet) 5-325 MG tablet To be sent to: [facility] - [place], [place] - [phone] - [place] - [address] documented in this encounter Plan of Treatment Upcoming Encounters Date Type Department Care Team (Late st Contact Info) Description 07/21/2025 10:30 AM EDT Clinical Support [facility] MEDICINE [address] [place] [address] Izzy Hull RN 505 [place] [address] 08/01/2025 9:45 AM EDT Office Visit [facility] [address] [place] [address] Estela Leos MD 230 [place] [address] documented as of this encounter Visit Diagnoses Not on filedocumented in this encounter Additional Health Concerns Assessment Noted Time PHQ-9 Depression Total Score: 7 07/09/20 23 1:56 PM EDT documented as of this encounter Care Teams Traffic Manager Relationship Specialty Start Date End Date Estela Leos MD [address] [place] [address] PCP - General Internal Medicine 05/18/23 documented as of this encounter
--- OUTSIDE RECORDS SUMMARY | 2025-07-18 12:36 | XMS_ITS | Encounter Summary ---
Author Organization [employer] Address 75 [facility] 7 [place] [address] Care Team Providers Care Cabinet Mounter Name Role Phone Estela Leos MD Primary Care Pro vider Reason for Visit * Reason Comments Med Refill Encounter Details Date Type Department Care Team (Late st Contact Info) Description 09/20/2024 Refill [facility] MEDICINE 230 [place] [address] Estela Leos MD 230 [place], [place] [phone] Dorsalgia Social History Tobacco Use Types Packs/Day [...] 07/21/2025 10:30 AM EDT Clinical Support [facility] [address] [place] [phone] Izzy Hull, RN 505 [place] [address] 08/01/2025 9:45 AM EDT Office Visit [facility] [address] [place] [address] Estela Leos MD [address] [place] [address] documented as of this encounter Visit Diagnoses Diagnosis Dorsalgia Pain in thoracic spine documented in this encounter Additional Health Concerns Assessment Noted Time PHQ-9 Depression Total Score: 7 07/09/20 23 1:56 PM EDT documented as of this encounter Care Teams Cabinet Mounter Relationship Specialty Start Date End Date Estela Leos MD [address] [place] [address] PCP - General Internal Medicine 05/18/23 documented as of this encounter
--- OUTSIDE RECORDS SUMMARY | 2025-07-18 12:36 | XMS_ITS | Clinical Summary ---
Author Organization [facility] Address [address] [place] [address] Care Team Providers Care Undercollar Baster Name Role Phone Unavailable Primary Care Provider Unavailabl e Surgical History Surgery Date Site/Laterality Comments CHOLECYSTECTOMY 07/16/2018 PROCEDURE: HISTORICAL CHOLECYSTECTOMY OTHER SURGICAL HISTORY 08/13/2023 Bilateral PROCEDURE: FL THROMBOLYSIS ARTERIAL INFUSION ICRA RS&I INIT TX OTHER SURGICAL HISTORY 08/13/2023 PROCEDURE: ULTRASOUND GUIDANCE FOR VASCULAR AC; COMMENT: x2 Medical History Medical History Date Comments Depression DX:Depression Anxiety DX:Anxiety Gout DX:Gout Lower extremity pain, left 10/05/2018 DX:Lo wer extremity pain, left Osteoarthritis of right knee DX: Osteoarthritis of right knee Hyperlipidemia DX:Hyperlipidemi a Lumbar disc herniation DX:Lumbar disc herniation; COMMENT: L4-5 Social History Tobacco Use Types Packs/Day Years Used Date Smoking Tobacco: Every Day Cigarettes Smokeless Tobacco: Never Alcohol Use Standard Drinks/Week Comments No 0 (1 standard drink = 0.6 oz pur e alcohol) Sex and Gender Information Value Date Recorded Sex Assigned at Not on file Legal Sex Male 11:36 PM EST Gender Identity Not on file Sexual Orientation Not on file Obstetrics History Last Filed Vital Signs Vital Sign Reading Time Taken Comments Blood Pressure 128/87 08/26/2023 10:13 AM EDT R Arm Pulse 73 08/26/2023 10:13 AM EDT Temperature - - Respiratory Rate - - Oxygen Saturation - - Inhaled Oxygen Concentration - - Weight 103 kg (227 lb) 08/26/2023 10:13 AM EDT Height 175.3 cm (5' 9 ) 08/26/2023 10:13 AM EDT Body Mass Index 33.52 08/26/2023 10:13 AM EDT Plan of Treatment Health Maintenance Due Date Last Done Comments DTaP,Tdap,and Td Vaccines (1 - Tdap) 1986 Hepatitis B Vaccines (1 of 3 - 19+ 3-dose series) 1986 Pneumococcal Vaccine: 50+ Ye ars (1 of 2 - PCV) 1986 Zoster Vaccines (1 of 2) 2017 Cholesterol Screening (Lipid Panel) 10/19/2022 Colorectal Cancer Screening: Colonoscopy 10/19/2022 HIV Screening 10/19/2022 Hepatitis C Screening 10/19/2022 Social Influencers of Health Screening 10/19/2022 Depression Screening 11/16/2024 COVID-19 Vaccine (1 - 2023-2 5 season) 2025 Influenza Vaccine (#1) 2025 HIB Vaccines Aged Out No longer eligi [...] on patient's age to complete this topic MMR Vaccines Aged Out No longer eligi ble based on patient's age to complete this topic Meningococcal ACWY Vaccine Aged Out N o longer eligible based on patient's age to complete this topic Meningococcal B Vaccine Aged Out No l onger eligible based on patient's age to complete this topic RSV Immunization Patients Un ruben 20 months Aged Out No longer eligible b ased on patient's age to complete this topic Varicella Vaccines Aged Out No longer eligible based on patient's age to complete this topic Advance Directives Documents on File Type Date Recorded Patient Apprentice Embalmer Expl anation Health Care Decision (hx) 05/18/2024 AD LANA DIRECTIVE
--- OUTSIDE RECORDS SUMMARY | 2025-07-18 12:36 | XMS_ITS | Encounter Summary ---
Author Organization [employer] Address 75 [facility] 7 [place] [address] Care Team Providers Care Religious Educator Name Role Phone Estela Leos MD Primary Care Pro vider Reason for Visit * Reason Comments Med Refill Encounter Details Date Type Department Care Team (Late st Contact Info) Description 10/31/2024 Refill [facility] MEDICINE 230 [place], [place] [phone] Ailyn Shah MD 230 [place], [place] [phone] Dorsalgia Social History Tobacco Use Types Packs/Day [...] with others, in a hotel, in a alf, living outside on the street, on a [...] Description 07/21/2025 10:30 AM EDT Clinical Support [facility]INE [address] [place] [address] Izzy Hull, RN 505 [place] [address] 08/01/2025 9:45 AM EDT Office Visit [facility] [address] [place] [address] Estela Leos MD [address] [place] [address] documented as of this encounter Visit Diagnoses Diagnosis Dorsalgia Pain in thoracic spine documented in this encounter Additional Health Concerns Assessment Noted Time PHQ-9 Depression Total Score: 7 07/09/20 23 1:56 PM EDT documented as of this encounter Care Teams Religious Educator Relationship Specialty Start Date End Date Estela Leos MD [address] [place] [address] PCP - General Internal Medicine 05/18/23 documented as of this encounter
--- OUTSIDE RECORDS SUMMARY | 2025-07-18 12:36 | XMS_ITS | Encounter Summary ---
Author Organization [employer] Address [address] [place] [address] [place] [address] Care Team Providers Care Ventilated Rib Fitter Name Role Phone Estela Leos MD Primary Care Pro vider Reason for Visit * Reason Onset Date Comments Med Refill 07/28/2024 Encounter Details Date Type Department Care Team (Late st Contact Info) Description 07/28/2024 Telephone [facility] MEDICINE 230 [place], [place] [phone] Estela Leos MD 230 [place], [place] [phone] Med Refill Social History Tobacco Use Types [...] with others, in a hotel, in a custodial, living outside on the street, on a [...] encounter Miscellaneous Notes * Telephone Encounter - Lucien Lindsay - 07/28/2024 9:09 AM EDT TC from pt requesting medication refill. Medications needing refill: oxyCODONE-acetaminophen (Percocet) 5-325 MG tablet To be sent to: [facility] - [place], [place] - [phone] - [place] - [address] documented in this encounter Plan of Treatment Upcoming Encounters Date Type Department Care Team (Late st Contact Info) Description 07/21/2025 10:30 AM EDT Clinical Support [facility] MED[facility]INE [address] [place] [address] Izzy Hull RN 505 [place] [address] 08/01/2025 9:45 AM EDT Office Visit [facility] [address] [place] [address] Estela Leos MD 230 [place] [address] documented as of this encounter Visit Diagnoses Not on filedocumented in this encounter Additional Health Concerns Assessment Noted Time PHQ-9 Depression Total Score: 7 07/09/20 23 1:56 PM EDT documented as of this encounter Care Teams Ventilated Rib Fitter Relationship Specialty Start Date End Date Estela Leos MD [address] [place] [address] PCP - General Internal Medicine 05/18/23 documented as of this encounter
--- OUTSIDE RECORDS SUMMARY | 2025-07-18 12:36 | XMS_ITS | Encounter Summary ---
Author Organization [employer] Address 75 [facility] 7 [place] [address] Care Team Providers Care Triage Nurse Name Role Phone Estela Leos MD Primary Care Pro vider Reason for Visit * Reason Comments Med Refill Encounter Details Date Type Department Care Team (Late st Contact Info) Description 10/21/2024 Refill [facility] MEDICINE 230 [place] [address] Estela Leos MD 230 [place], [place] [phone] Dorsalgia Social History Tobacco Use Types Packs/Day [...] with others, in a hotel, in a longterm, living outside on the street, on a [...] Description 07/21/2025 10:30 AM EDT Clinical Support [facility] MEDICINE [address] [place] [phone] Izzy Hull, RN 505 [place] [address] 08/01/2025 9:45 AM EDT Office Visit [facility] [address] [place] [address] Estela Leos MD [address] [place] [address] documented as of this encounter Visit Diagnoses Diagnosis Dorsalgia Pain in thoracic spine documented in this encounter Additional Health Concerns Assessment Noted Time PHQ-9 Depression Total Score: 7 07/09/20 23 1:56 PM EDT documented as of this encounter Care Teams Triage Nurse Relationship Specialty Start Date End Date Estela Leos MD [address] [place] [address] PCP - General Internal Medicine 05/18/23 documented as of this encounter
--- OUTSIDE RECORDS SUMMARY | 2025-07-18 12:36 | XMS_ITS | Encounter Summary ---
Author Organization [employer] Address 75 [facility] 7 [place] [address] Care Team Providers Care Adjustment Supervisor Name Role Phone Estela Leos MD Primary Care Pro vider Reason for Visit * Reason Onset Date Comments Medication Question 07/06/2024 Encounter Details Date Type Department Care Team ([facility] st Contact Info) Description 07/06/[address] [facility]INE 230 [place], [place] [phone] Estela Leos MD 230 [place] [address] Medication Question Social History Tobacco Use Types Packs/Day Years [...] * Telephone Encounter - Lucien Lindsay - 07/06/2024 9:37 AM EDT Tc from pt requesting call back regarding oxyCODONE-acetaminophen (Percocet) 5- 325 MG tablet. Pt stated he only received 28 day script instead of the normal 56 and wanted to clarify why. Please contact pt at [phone]. documented in this encounter Plan of Treatment Upcoming Encounters Date Type Department Care Team (Late st Contact Info) Description 07/21/2025 10:30 AM EDT Clinical Support [facility] MEDICINE [address] [place] [address] Izzy Hull RN [address] [place] [address] 08/01/2025 9:45 AM EDT Office Visit [facility] [address] [place] [address] Estela Leos MD 230 [place] [address] documented as of this encounter Visit Diagnoses Not on filedocumented in this encounter Additional Health Concerns Assessment Noted Time PHQ-9 Depression Total Score: 7 07/09/20 23 1:56 PM EDT documented as of this encounter Care Teams Adjustment Supervisor Relationship Specialty Start Date End Date Estela Leos MD [address] [place] [address] PCP - General Internal Medicine 05/18/23 documented as of this encounter
--- OUTSIDE RECORDS SUMMARY | 2025-07-18 12:36 | XMS_ITS | Encounter Summary ---
Author Organization [employer] Address 75 [facility] 7 [place] [address] Care Team Providers Care Arc Welding Machine Operator Name Role Phone Estela Leos MD Primary Care Pro vider Reason for Visit * Reason Onset Date Comments Med Refill 03/14/2024 Encounter Details Date Type Department Care Team (Late st Contact Info) Description 03/14/2024 Telephone [facility]INE 230 [place], [place] [phone] Estela Leos MD 230 [place], [place] [phone] Med Refill Social History Tobacco Use Types [...] Telephone Encounter - Jessica Delgado LPN - 03/14/2024 10:58 AM EDT Medication pended to PCP. * Telephone Encounter - Rimma Huynh - 03/14/2024 10:45 AM EDT TC from pt requesting medication refill. Medications needing refill : Eliquis 5 MG tablet To be sent to: [facility] - [place], [place] - [phone] - [place] - [address] documented in this encounter Plan of Treatment Upcoming Encounters Date Type Department Care Team (Late st Contact Info) Description 07/21/2025 10:30 AM EDT Clinical Support [facility] [address] [place] [address] Izzy Hull RN 505 [place] [address] 08/01/2025 9:45 AM EDT Office Visit [facility] [address] [place] [address] Estela Leos MD 230 [place] [address] documented as of this encounter Visit Diagnoses Not on filedocumented in this encounter Additional Health Concerns Assessment Noted Time PHQ-9 Depression Total Score: 7 07/09/20 23 1:56 PM EDT documented as of this encounter Care Teams Arc Welding Machine Operator Relationship Specialty Start Date End Date Estela Leos MD [address] [place] [address] PCP - General Internal Medicine 05/18/23 documented as of this encounter
--- OUTSIDE RECORDS SUMMARY | 2025-07-18 12:36 | XMS_ITS | Encounter Summary ---
Author Organization [employer] Address 75 [facility] 7 [place] [address] Care Team Providers Care Monumental Stonemason Name Role Phone Jaqueline Cifuentes Primary Care Provider [phone] Estela Leos MD Primary Care Pro vider Reason for Visit * Reason Comments Med Refill Encounter Details Date Type Department Care Team (Late st Contact Info) Description 04/22/[address] [facility] MEDICINE 230 [place], [place] [phone] Jaqueline Cifuentes FNP 505 [place], [place] [phone] Dorsalgia Social History Tobacco Use Types Packs/Day Years Used Date Smoking Tobacco: Never Assessed Sex and Gender Information Value Date Recorded Sex Assigned at Male 09/15/2022 10:35 AM EDT Legal Sex Male 10:35 AM EDT Gender Identity Male 09/15/2022 10:35 AM EDT Sexual Orientation Straight 09/15/2022 10 :35 AM EDT COVID-19 Exposure Response Date Recorded In the last 10 days, have yo u been in contact with someone who was confirmed or suspected to have Coronavirus/COVID-19? No / Unsure 04/22/2023 10:11 AM EDT documented as of this encounter Plan of Treatment Upcoming Encounters Date Type Department Care Team (Late st Contact Info) Description 07/21/2025 10:30 AM EDT Clinical Support [facility]ICINE 230 [place] [address] Izzy Hull, RN 505 [place], [place] [phone] 08/01/2025 9:45 AM EDT Office Visit [facility]INE 230 [place] [address] Estela Leos MD 230 [place] [address] documented as of this encounter Visit Diagnoses Diagnosis Dorsalgia Pain in thoracic spine documented in this encounter Care Teams Monumental Stonemason Relationship Specialty Start Date End Date Jaqueline Cifuentes FNP 230 [place] [address] PCP - General Family Medicine 07/14/22 05/11/23 Estela Leos MD 230 [place] [address] PCP - General Internal Medicine 05/18/23 documented as of this encounter
--- OUTSIDE RECORDS SUMMARY | 2025-07-18 12:36 | XMS_ITS | Encounter Summary ---
Author Organization [employer] Address [address] [place] [address] [place] [address] Care Team Providers Care Palletiser Operator Name Role Phone Estela Leos MD Primary Care Pro vider Reason for Visit * Reason Onset Date Comments Med Refill 10/17/2024 Encounter Details Date Type Department Care Team (Late st Contact Info) Description 10/17/[address] [facility] MED[facility]INE [address] [place], [place] [phone] Estela Leos MD [address] [place], [place] [phone] Med Refill Social History Tobacco Use Types [...] with others, in a hotel, in a mcc, living outside on the street, on a [...] * Telephone Encounter - Norma Mir - 10/17/2024 9:14 AM EST TC from pt requesting medication refill. Medications needing refill : oxyCODONE-acetaminophen (Percocet) 5-325 MG tablet To be sent to: [facility] - [place], [place] - [phone] [place] - [phone] documented in this encounter Plan of Treatment Upcoming Encounters Date Type Department Care Team (Late st Contact Info) Description 07/21/2025 10:30 AM EDT Clinical Support [facility] [address] [place] [phone] Izzy Hull RN [address] [place] [address] 08/01/2025 9:45 AM EDT Office Visit [facility] [address] [place] [phone] Estela Leos MD [address] [place] [address] documented as of this encounter Visit Diagnoses Not on filedocumented in this encounter Additional Health Concerns Assessment Noted Time PHQ-9 Depression Total Score: 7 07/09/20 1:56 PM EDT documented as of this encounter Care Teams Palletiser Operator Relationship Specialty Start Date End Date Estela Leos MD [address] [place] [phone] PCP - General Internal Medicine 05/18/23 documented as of this encounter
--- OUTSIDE RECORDS SUMMARY | 2025-07-18 12:36 | XMS_ITS | Encounter Summary ---
Author Organization [employer] Address [address] [facility] 7 [place] [address] Care Team Providers Care Slabbing Machine Operator Name Role Phone Estela Leos MD Primary Care Pro vider Reason for Visit * Reason Onset Date Comments Med Refill 05/15/2023 Encounter Details Date Type Department Care Team ([facility] st Contact Info) Description 05/15/2023 Telephone [facility] MED[facility]INE [address] [place], [place] [phone] Estela Leos MD [address] [place], [place] [phone] Med Refill Social History Tobacco Use Types [...] encounter Miscellaneous Notes * Telephone Encounter - Radhika Izaguirre RN - 05/15/2023 4:03 PM EDT Pt has ncns or cancelled his 7 appointments since at least October. This includes his TP appt withGENOVEVA Cifuentes. Pt is not due for TP with you until June. Pt has been titrated down to BID d/t these cancellations. This has been explained to patient, see prior notes in pt chart. Pt should still have medication to get him through 05/19. I would like to discuss this pt and make a decision on Thursday. * Telephone Encounter - Lea Potter - 05/15/2023 3:29 PM EDT TC from pt requesting a med refill for oxyCODONE-acetaminophen (Percocet) 5-325 MG tablet. Also pt stated that he normally he gets 84 quantity but this time was only 56 tabs. Pt without meds. PCP MD Alonso documented in this encounter Plan of Treatment Upcoming Encounters Date Type Department Care Team (Late st Contact Info) Description 07/21/2025 10:30 AM EDT Clinical Support [facility] [address] [place] [phone] Izzy Hull RN [address] [place] [address] 08/01/2025 9:45 AM EDT Office Visit [facility] [address] [place] [phone] Estela Leos MD [address] [place] [phone] documented as of this encounter Visit Diagnoses Not on filedocumented in this encounter Care Teams Slabbing Machine Operator Relationship Specialty Start Date End Date Estela Leos MD [address] [place] [phone] PCP - General Internal Medicine 05/18/23 documented as of this encounter
--- OUTSIDE RECORDS SUMMARY | 2025-07-18 12:36 | XMS_ITS | Encounter Summary ---
Author Organization [email or web address] Address [address] [facility] 7 [place] [address] Care Team Providers Care Sugar Boiler Name Role Phone Estela Leos MD Primary Care Pro vider Reason for Visit * Reason Comments Med Refill Encounter Details Date Type Department Care Team (Late st Contact Info) Description 04/16/2024 Refill [facility] MEDICINE [address] [place] [phone] Estela Leos MD [address] [place], [place] [phone] Dorsalgia Social History Tobacco Use Types Packs/Day [...] Description 07/21/2025 10:30 AM EDT Clinical Support [facility] MED[facility]INE [address] [place] [phone] Izzy Hull, YANIQUE [address] [place] [address] 08/01/2025 9:45 AM EDT Office Visit [facility] MED[facility]INE [address] [place] [phone] Estela Leos MD [address] [place] [phone] documented as of this encounter Visit Diagnoses Diagnosis Dorsalgia Pain in thoracic spine documented in this encounter Additional Health Concerns Assessment Noted Time PHQ-9 Depression Total Score: 7 07/09/20 23 1:56 PM EDT documented as of this encounter Care Teams Sugar Boiler Relationship Specialty Start Date End Date Estela Leos MD [address] [place] [phone] PCP - General Internal Medicine 05/18/23 documented as of this encounter
== END 2025-07-18 11:33 | disposition home or self-care (01) ==
LOC: HO.HOS 11:00
PROVIDERS: PCP Student in an Organized Health Care Education/Training Program; Visit Provider Orthopaedic Surgery
DX: M17.0 Bilateral primary osteoarthritis of knee (principal)
CPT/HCPCS: 99214; G2211

== ENCOUNTER → 2025-07-18 10:58 | Outpatient (BNVA) | payer OTHER, SELFPAY | PROVIDERS: PCP Student in an Organized Health Care Education/Training Program; Visit Provider Orthopaedic Surgery | DX: M17.11 Unilateral primary osteoarthritis, right knee (principal); M17.12 Unilateral primary osteoarthritis, left knee | CPT/HCPCS: 99212 ==